=== PATIENT | female | born 1980 | race African-American/Black ===

== ENCOUNTER 2022-03-11 09:32 | Emergency (ER) | payer MEDICAID ==
[~2022-03-11] VITALS: Ht 160 cm; Wt 45.0 kg
[2022-03-11 10:00] VITALS: BP 146/73
== END 2022-03-11 14:00 | disposition left against medical advice (07) ==
LOC: ER 09:32
DX: M54.9 Dorsalgia, unspecified (principal); Z53.21 Procedure and treatment not carried out due to patient leaving prior to being seen by health care provider
CPT/HCPCS: 82962

== ENCOUNTER 2023-02-02 09:10 | Inpatient (IN) | payer MEDICAID ==
[~2023-02-02] VITALS: Ht 162.6 cm; Wt 54.5 kg
[2023-02-02 09:45] LABS: Basophils # (auto) 0.1 10 ^3/uL (0-0.2); Eosinophils # (auto) 0 10 ^3/uL (0-0.8); Lymphocytes # (auto) 1.4 10 ^3/uL (0.4-5.4); Nucleated Red Blood Cells % 0.1 %
[2023-02-02 09:48] LABS: Basophils % (auto) 0.8 % (0.0-2.0); Lymphocytes % (auto) 12.8 % (10.0-50.0); Mean Corpuscular Hemoglobin 26.4 pg (28.0-32.0); Mean Corpuscular Hgb Conc. 29.8 g/dL (32.0-36.0); Mean Corpuscular Volume 88.7 fL (80.0-100.0); Monocytes # (auto) 0.4 10 ^3/uL (0-1.3); Monocytes % (auto) 3.2 % (0.0-12.0); Neutrophils # (auto) 9.3 10 ^3/uL (1.6-8.6); Neutrophils % (auto) 83.2 % (37.0-80.0); Red Blood Cells 4.17 10^6/uL (4.0-5.20); Red Cell Distribution Width 18.8 % (11.8-14.3); White Blood Cell 11.2 10^3/uL (4.4-10.8)
[2023-02-02] MEDS ORDERED: INSULIN DRIP 100 UNIT/100ML 100 ML IV SCH (10:00)
[2023-02-02] MEDS ORDERED: INSULIN LANTUS (GLARGINE) 1 /0.01ml (100units/ml) SC ONE (10:00)
[2023-02-02] MEDS ORDERED: DEXTROSE (50%) 50ML SYRG IV PRN (10:00)
[2023-02-02] MEDS ORDERED: SODIUM CHLORIDE 0.9% 1,000 ML IV ONE ×3 (10:00→13:45)
[2023-02-02 10:07] LABS: Alanine Aminotransferase 42 U/L (7-40); Albumin 4.4 g/dL (3.2-4.8); Alkaline Phosphatase 107 U/L (46-116); Anion Gap 23 (5-15); Aspartate Aminotransferase 31 U/L (13-40); BUN/Creatinine Ratio 18.6 (10.0-20.0); Bilirubin, Total 0.8 mg/dL (0.2-1.0); Blood Urea Nitrogen 19 mg/dL (9-23); Calcium 9.9 mg/dL (8.5-10.1); Carbon Dioxide 15 mmol/L (20-30); Chloride 95 mmol/L (98-107); Potassium 4.8 mmol/L (3.5-5.1); Sodium 133 mmol/L (136-145)
[2023-02-02 10:08] LABS: Total Protein 7.2 g/dL (5.7-8.2)
[2023-02-02 10:29] LABS: Glucose 687 mg/dL (74-106)
[2023-02-02 10:33] LABS: Base Excess -15.7 mmol/L (-2.0-2.0)
[2023-02-02] MEDS: ACCU-CHEK COMFORT CURVE STRIP VI SCH ×9 (10:50→22:30)
[2023-02-02] MEDS ORDERED: PIPERACILLIN-TAZOB 3.375GM 100 ML IV ONE (11:00)
[2023-02-02 12:08] LABS: Urine Bacteria NONE SEEN /hpf (None Seen); Urine Blood Negative /uL (Negative); Urine Clarity Clear (Clear); Urine Color Straw (Yellow); Urine Protein, UAD Negative (Negative); Urine Specific Gravity 1.021 (1.001-1.035); Urine Urobilinogen Normal (Negative); Urine WBC 1 /hpf (0 - 5)
[2023-02-02] MEDS ORDERED: MORPHINE SULFATE INJ 2 MG/ml SYRG IV PRN (13:45)
[2023-02-02] MEDS ORDERED: NITROGLYCERIN 0.4 MG SL TAB SL PRN (13:45)
[2023-02-02] MEDS: SODIUM CHLORIDE 0.9% 1,000 ML IV SCH ×2 (13:45→22:05)
[2023-02-02] MEDS ORDERED: ACETAMINOPHEN 325 MG TAB PO PRN (13:45)
[2023-02-02] MEDS: HYDROcodone-ACET 5/325MG TAB PO PRN ×2 (14:25→21:18)
[2023-02-02] MEDS: ONDANSETRON HCL 4 MG/2 ML VIAL IV PRN ×2 (16:17→21:17)
[2023-02-02] MEDS: PIPERACILLIN-TAZOB 3.375GM 100 ML IV SCH (17:52)
[2023-02-02 18:29] LABS: Anion Gap 12 (5-15); Carbon Dioxide 18 mmol/L (20-30); Chloride 106 mmol/L (98-107); Sodium 136 mmol/L (136-145)
[2023-02-02 18:30] LABS: Calcium 8.3 mg/dL (8.7-10.4)
[2023-02-02 18:35] LABS: Blood Urea Nitrogen 12 mg/dL (9-23); Glucose 215 mg/dL (74-106)
[2023-02-02 19:48] VITALS: PULSE 95; RESP 20; O2SAT 98
[2023-02-03] MEDS: ACCU-CHEK COMFORT CURVE STRIP VI SCH ×5 (00:09→12:18)
[2023-02-03 00:53] LABS: Chloride 108 mmol/L (98-107); Potassium 3.4 mmol/L (3.5-5.1); Sodium 138 mmol/L (136-145)
[2023-02-03 00:54] LABS: Anion Gap 9 (5-15); Calcium 8.4 mg/dL (8.7-10.4); Carbon Dioxide 21 mmol/L (20-30)
[2023-02-03 00:59] LABS: BUN/Creatinine Ratio 11.4 (10.0-20.0); Blood Urea Nitrogen 8 mg/dL (9-23); Glucose 73 mg/dL (74-106)
[2023-02-03] MEDS: PIPERACILLIN-TAZOB 3.375GM 100 ML IV SCH ×2 (02:20→09:15)
[2023-02-03] MEDS ORDERED: DEXTROSE (50%) 50ML SYRG IV PRN (06:00)
[2023-02-03 06:08] LABS: Basophils # (auto) 0.1 10 ^3/uL (0-0.2); Eosinophils # (auto) 0.1 10 ^3/uL (0-0.8); Neutrophils # (auto) 4.4 10 ^3/uL (1.6-8.6); White Blood Cell 7.8 10^3/uL (4.4-10.8)
[2023-02-03 06:14] LABS: Eosinophils % (auto) 1.1 % (0.0-7.0); Hematocrit 30.4 % (36.0-46.0); Hemoglobin 9.4 g/dL (12.2-16.2); Lymphocytes # (auto) 2.8 10 ^3/uL (0.4-5.4); Lymphocytes % (auto) 35.8 % (10.0-50.0); Mean Corpuscular Hemoglobin 26.4 pg (28.0-32.0); Mean Corpuscular Hgb Conc. 30.8 g/dL (32.0-36.0); Mean Corpuscular Volume 85.8 fL (80.0-100.0); Monocytes # (auto) 0.5 10 ^3/uL (0-1.3); Monocytes % (auto) 6.3 % (0.0-12.0); Neutrophils % (auto) 55.8 % (37.0-80.0); Red Blood Cells 3.54 10^6/uL (4.0-5.20)
[2023-02-03 06:27] LABS: Albumin 3.6 g/dL (3.2-4.8); Alkaline Phosphatase 72 U/L (46-116); Anion Gap 6 (5-15); Aspartate Aminotransferase 23 U/L (13-40); BUN/Creatinine Ratio 11.9 (10.0-20.0); Bilirubin, Total 0.5 mg/dL (0.2-1.0); Blood Urea Nitrogen 8 mg/dL (9-23); Calcium 8.1 mg/dL (8.7-10.4); Carbon Dioxide 21 mmol/L (20-30); Chloride 109 mmol/L (98-107); Glucose 97 mg/dL (74-106); Potassium 4.3 mmol/L (3.5-5.1); Sodium 136 mmol/L (136-145)
[2023-02-03 06:34] LABS: Alanine Aminotransferase 24 U/L (7-40)
[2023-02-03] MEDS: SODIUM CHLORIDE 0.9% 1,000 ML IV SCH ×2 (06:47→14:45)
[2023-02-03 08:00] VITALS: PULSE 93; RESP 16; O2SAT 98
[2023-02-03 08:00] LABS: Base Excess -4.2 mmol/L (-2.0-2.0)
[2023-02-03] MEDS: InsuLIN REG 1unit/0.01ml Soln (100units/ml) SC SCH ×2 (08:40→12:21)
[2023-02-03] MEDS ORDERED: INSULIN LANTUS (GLARGINE) 1 /0.01ml (100units/ml) SC SCH (10:00)
[2023-02-03] MEDS ORDERED: ENOXAPARIN SOD 40 MG/0.4 ML SYRINGE SC SCH (10:00)
[2023-02-03 11:44] LABS: Magnesium 1.7 mg/dL (1.6-2.6)
[2023-02-03 11:46] LABS: Phosphorus 2.4 mg/dL (2.4-5.1)
[2023-02-03] MEDS: ONDANSETRON HCL 4 MG/2 ML VIAL IV PRN (12:25)
[2023-02-03 12:54] LABS: Chloride 106 mmol/L (98-107); Potassium 3.7 mmol/L (3.5-5.1); Sodium 137 mmol/L (136-145)
[2023-02-03 12:55] LABS: Anion Gap 8 (5-15); Calcium 8.3 mg/dL (8.5-10.1); Carbon Dioxide 23 mmol/L (20-30)
[2023-02-03 13:00] LABS: BUN/Creatinine Ratio 7.6 (10.0-20.0); Blood Urea Nitrogen 5 mg/dL (9-23); Glucose 192 mg/dL (74-106)
[2023-02-03] MEDS ORDERED: AZITTAB PO (14:07)
[2023-02-03 14:50] VITALS: BP 105/62; PULSE 102; RESP 16; TEMP 97.8; O2SAT 99
== END 2023-02-03 14:50 | disposition home or self-care (01) | DRG 420 ==
LOC: ER 09:10 → EDBD 09:10 → TELE 13:46
PROVIDERS: ADMIT Internal Medicine Geriatric Medicine; ATTEND Student in an Organized Health Care Education/Training Program
DX: E10.10 Type 1 diabetes mellitus with ketoacidosis without coma (principal); D72.829 Elevated white blood cell count, unspecified
CPT/HCPCS: 36415; 36600; 71045; 74176; 80048; 80053; 81001; 82010; 82805; 82962; 83036; 83605; 83735; 84100; 85025; 99291; G0378; J1815; J2405; J2543

== ENCOUNTER → 2023-06-26 | Outpatient (CLI) | payer MEDICAID ==
[~2023-06-26] MED LIST: AZITTAB PO
== END | disposition home or self-care (01) ==
LOC: XYW 08:30
PROVIDERS: ATTEND Internal Medicine Gastroenterology
DX: R11.2 Nausea with vomiting, unspecified (principal)
CPT/HCPCS: 78264; A9541

== ENCOUNTER 2024-12-13 11:07 | Inpatient (IN) | payer MEDICAID ==
[~2024-12-13] VITALS: Ht 160 cm; Wt 69.2 kg
--- NOTE | 2024-12-13 11:26 | ED.PDOC ---
GI ASSESSMENT HPI Comments 44 year old male presents to the ED with a chief complaint of abdominal pain onset 4 days. Patient states he has been experiencing lower abdominal pain radiates to low back as well as nausea, vomiting, diarrhea and chills. Patient is also experiencing urinary urgency but cannot urinate. She was seen at [facility] last night, was told she had an all enlarged spleen and liver, was discharged. Patient states pain has not improved, has worsened, contacted her insurance and was advised to come to [facility]. She follows up with the [facility] and was told she has a fatty liver. PMHx DM. Denies fever, hematuria, hematemesis, dizziness, headache, chest pain, shortness of breath. No other symptoms or modifying factors present at this time. Chief Complaint: Abdominal Pain Time Seen by MD: 11:20 Reviewed Notes: Medications, Allergies Allergies: Coded Allergies: NO KNOWN ALLERGIES (Unverified , 03/11/22) Home Meds Active Scripts Azithromycin (Zithromax Z-Reggie) 250 Mg Tab, 250 MG PO DAILY, #6 TAB Prov:MARGARITA FRAUSTO MD 02/03/23 Information Source: Patient Mode of Arrival: Ambulatory Timing: Days Duration: Since onset Prehospital treatment: None Quality: Sharp Severity: Moderate Recent: None Recent Hx of: None Pain Location: RLQ, LUQ Modifying Factors: Nothing Associated sign and symptoms: Nausea, Vomiting, Diarrhea, Abdominal Pain Past Medical History PAST MEDICAL HISTORY: DM Surgical History: , Tubal Ligation RETAIL ACCOUNT SPECIALIST History: Ectopic , Endometriosis Family History Family History: Unknown Social History Smoker: Non-Smoker Alcohol: Denies ETOH Use Drugs: Denies Drug Use Lives In: Home Constitutional: reports: chills; denies: diaphoresis, fatigue, fever, malaise, sweats, weakness, others EENTM: denies: blurred vision, double vision, ear bleeding, ear discharge, ear drainage, ear pain, ear ringing, eye pain, eye redness, hearing loss, mouth pain, mouth swelling, nasal discharge, nose bleeding, nose congestion, nose pain, photophobia, tearing, throat pain, throat swelling, voice changes, others Respiratory: denies: cough, hemoptysis, orthopnea, SOB at rest, shortness of breath, SOB with excertion, stridor, wheezing, others Cardiovascular: denies: chest pain, dizzy spells, diaphoresis, Dyspnea on exertion, edema, irregular heart beat, left arm pain, lightheadedness, palpitations, PND, syncope, others Gastrointestinal: reports: abdominal pain, diarrhea, nausea, vomiting; denies: abdomen distended, blood streaked bowels, constipated, dysphagia, difficulty swallowing, hematemesis, melena, poor appetite, poor fluid intake, rectal bleeding, rectal pain, others Genitourinary: denies: abnormal vagina bleeding, burning, dyspareunia, dysuria, flank pain, frequency, hematuria, incontinence, pain, , vagina discharge, urgency, others Neurological: denies: dizziness, fainting, headache, left sided numbness, left sided weakness, numbness, paresthesia, pre-existing deficit, right sided numbness, right sided weakness, seizure, speech problems, tingling, tremors, weakness, others Musculoskeletal: reports: back pain; denies: gout, joint pain, joint swelling, muscle pain, muscle stiffness, neck pain, others Integumetry: denies: bruises, change in color, change in hair/nails, dryness, laceration, lesions, lumps, rash, wounds, others Allergic/Immunocompromised: denies: Difficulty Healing, Frequent Infections, Hives, Itching, others Hematologic/Lymphatic: denies: anemia, blood clots, easy bleeding, easy bruising, swollen glands, others Endocrine: denies: excessive hunger, excessive sweating, excessive thirst, excessive urination, flushing, intolerance to cold, intolerance to heat, unexplained weight gain, unexplained weight loss, others Psychiatric: denies: anxiety, bipolar disorder, depression, hopeless, panic disorder, schizophrenia, sleepless, suicidal, others All Other Systems: Reviewed and Negative Physical Exam General Appearance: Moderate Distress, Normal HEENT: Normal ENT Inspection, Pharynx Normal, TMs Normal Neck: Full Range of Motion, Non-Tender, Normal, Normal Inspection Respiratory: Chest Non-Tender, Lungs Clear, No Accessory Muscle Use, No Respiratory Distress, Normal Breath Sounds Cardiovascular: No Edema, No JVD, No Murmur, No Gallop, Normal Peripheral Pulses, Regular Rate/Rhythm Breast Exam: Deferred Gastrointestinal: No Organomegaly, Non Tender, No Pulsatile Mass, Normal Bowel Sounds, Soft Genitalia: Deferred Pelvic: Deferred Rectal: Deferred Extremities: No calf tenderness, Normal capillary refill, Normal inspection, Normal range of motion, Non-tender, No pedal edema Musculoskeletal : Apperance: Normal Neurologic: Alert, extract puller II-XII nml as Tested, No Motor Deficits, Normal Affect, Normal Mood, No Sensory Deficits Cerebellar Function: Normal Reflexes: Normal Skin: Dry, Normal Color, Warm Peripheral Pulses: 3+ Radial (R), 3+ Radial (L) Lymphatic: No Adenopathy Was a procedure done? Was a procedure done?: No GI differential Dx Differential Diagnosis: Constipation, Diverticular disease, Esophagitis, Gastritis/PUD, Gastroenteritis X-Ray, Labs, Meds, VS Vital Signs Date Time Temp Pulse Resp B/P (MAP) Pulse Ox O2 Delivery O2 Flow Rate FiO2 12/13/24 11:09 98.7 114 18 132/66 99 98.7 Patient alert. Very sensitive about drugs. History of liver disease pain Vitals stable. Ambulating. No leg swelling. Saturation pristine on room air. She was upset that we asked her questions about marijuana other drugs. Contact [facility] for which she was seen yesterday. Possibly need GI consultation. Continue monitoring. Time of 1ST Reevaluation: 11:50 Reevaluation 1ST: Unchanged Patient Education/Counseling: Diagnosis, Treatment, Prognosis Family Education/Counseling: No Family Present SEPSIS Sepsis Screen Date sepsis recognized/suspect: Dec 13, 2024 Time Sepsis recognized/suspect: 1109 Recent Procedure: No On Antibiotic Therapy: No Respiratory Rate >20: No Heart Rate >90: Yes Temp<36 C (96.8 F) or >38.3 C: No SBP <90 or MAP <65 mmHG: No New Acute Mental Status Change: No Is the patient on CPAP, BIPAP,: No Physician Orders Complete Blood Count (12/13/24 11:16) Urinalysis (12/13/24 11:16) Basic Metabolic Panel (12/13/24 11:16) Vital Signs Date Time Temp Pulse Resp B/P (MAP) Pulse Ox O2 Delivery O2 Flow Rate FiO2 12/13/24 11:09 98.7 114 18 132/66 99 98.7 Departure 1 Departure Time of Disposition: 11:41 Impression: Primary Impression: Acute abdominal pain Disposition: ADMITTED INPATIENT Admit to: Med Surg Condition: Guarded Critical Care Note Critical Care Time?: No Stability Stability form required: No Heart Score Heart Score: Heart Score Response (Comments) Value History N/A 0 EKG N/A 0 Age N/A 0 Risk Factors N/A 0 Troponin N/A 0 Total 0 I personally scribed for ALFONSO REIS MD ([email or web address]) on 12/13/24 at 11:26. Electronically submitted by Kiana Bradford ([email or web address]). ALFONSO REIS MD Dec 13, 2024 11:26
--- NOTE | 2024-12-13 13:00 | DVH ---
Exam: CT CT AB PEL WO CON-NO ORAL OR IV History: colitis Comparison Study: CT CT AB PEL WO CON-NO ORAL OR IV on DOS: 02/02/23 Technique: Multidetector spiral CT of the abdomen was performed from lung bases to pubic symphysis. I maging was performed without IV contrast. Axial, coronal and sagittal multiplanar reformats were obta ined from the axial data set by the technologist. Radiation Dose : 1. Abdomen/Pelvis: CTDIvol 5.56 mGy, DLP 3.92 mGy*cm. Findings: Evaluation of solid organs is limited due to lack of intravenous contrast use. Lung Bases: Left basilar subsegmental atelectasis. Liver: Hepatomegaly. Gallbladder and Biliary Tree: Unremarkable Spleen: Unremarkable Pancreas: The pancreas is grossly normal in appearance. Adrenal Glands: Unremarkable Kidneys: Kidneys are grossly normal without calculi or hydronephrosis. Bladder: Grossly unremarkable for degree of distention. Bowel: The stomach is grossly normal in appearance. Moderate volume colonic stool. Normal appendix is visualized in the right lower quadrant without findings of appendicitis. Ascites: Absent Lymphadenopathy: No mesenteric, retroperitoneal or periportal lymphadenopathy. Abdominal Wall and Mesentery: Unremarkable. Vasculature: The visualized abdominal aorta is normal in size and caliber. Evaluation of abdominal a nd pelvic vessels is limited due to lack of intravenous contrast. Pelvic Organs: Unremarkable Musculoskeletal: No aggressive focal bony lesions, acute fractures or dislocation. IMPRESSION: Limited evaluation of the solid abdominal viscera and vasculature due to the lack of intravenous cont rast. No acute abnormalities in the abdomen or pelvis. Moderate volume colonic stool.
[2024-12-13] MEDS: SODIUM CHLORIDE 0.9% 1,000 ML IV ONE ×2 (13:13→16:50)
[2024-12-13] MEDS: MORPHINE SULFATE 4 MG/ML SYR/VIAL IV ONE (13:13)
[2024-12-13] MEDS: ONDANSETRON HCL 4 MG/2 ML VIAL IV ONE (13:13)
[2024-12-13 15:16] LABS: Urine Budding Yeast OCCASIONAL /hpf (None Seen); Urine Protein, UAD 1+ (Negative)
[2024-12-13] MEDS: SODIUM CHLORIDE 0.9% 1,000 ML IV SCH (16:30)
[2024-12-13 17:02] LABS: Hematocrit 36.2 % (36.0-46.0); Hemoglobin 11.8 g/dL (12.2-16.2); Mean Corpuscular Hemoglobin 27.9 pg (28.0-32.0); Mean Corpuscular Volume 85.7 fL (80.0-100.0); Nucleated Red Blood Cells % 0.0 %
[2024-12-13 17:17] LABS: INR 0.99 (0.9-1.15); Partial Thromboplastin Time 32.3 SEC (24.5-34.5); Prothrombin Time 10.5 sec (9.3-11.8)
[2024-12-13 17:19] LABS: Albumin 3.7 g/dL (3.2-4.8); Alkaline Phosphatase 106 U/L (46-116); Anion Gap 7 (5-15); BUN/Creatinine Ratio 11.1 (10.0-20.0); Blood Urea Nitrogen 11 mg/dL (9-23); Carbon Dioxide 21 mmol/L (20-31); Lipase 16 U/L (12-53); Magnesium 1.8 mg/dL (1.6-2.6); Sodium 140 mmol/L (136-145); Total Protein 6.3 g/dL (5.7-8.2)
[2024-12-13 17:20] LABS: Alanine Aminotransferase 69 U/L (7-40); Bilirubin, Total < 0.2 mg/dL (0.2-1.0); Calcium 8.1 mg/dL (8.7-10.4); Chloride 112 mmol/L (98-107); Glucose 202 mg/dL (74-106); Potassium 3.4 mmol/L (3.5-5.1)
--- NOTE | 2024-12-13 17:30 | DVH ---
EXAM: XY CHEST XRAY 1 VIEW CLINICAL HISTORY: Sepsis TECHNIQUE: Single AP view of the chest WID: COMPARISON: XY CHEST PORTABLE on DOS: 02/02/23 FINDINGS: Lines and tubes: None Chest: The heart size and pulmonary vasculature is within normal limits. No pleural effusion, pneumothorax, or consolidation. Linear scarring or atelectasis in the left lung base. The osseous structures are grossly intact. IMPRESSION: 1. No acute cardiopulmonary abnormality.
[2024-12-13 17:55] LABS: Barbiturate Scree,Urine Neg (NEGATIVE); Benzodiazephine Screen, Urine Neg (NEGATIVE)
[2024-12-13 17:56] LABS: Cannabinoid Screen, Urine Pos (NEGATIVE); Opiate Scree,Urine Neg (NEGATIVE)
[2024-12-13 18:00] LABS: Triglycerides 85 mg/dL (< 150)
[2024-12-13 18:01] LABS: Cholesterol 137 mg/dL (< 200)
[2024-12-13 18:16] LABS: HDL Cholesterol 69 mg/dL (40-59)
[2024-12-13 18:16] LABS: Amphetamine Screen, Urine Neg (NEGATIVE); Cocaine Screen, Urine Neg (NEGATIVE); Phencyclidine Screen, Urine Neg (NEGATIVE)
[2024-12-13] MEDS ORDERED: DOXYCYCLINE 100MG/100ML 100 ML IV ONE (19:30)
--- NOTE | 2024-12-13 20:18 | DVH ---
ULTRASOUND ABDOMEN: REASON FOR EXAM: Abdominal pain. Right upper quadrant pain. TECHNIQUE: Real-time sector scans in the transverse and longitudinal planes were obtained through th e abdomen. FINDINGS: The liver is of normal size and contour. The liver echotexture is coarse and echogenic. Th ere is no intrahepatic biliary ductal dilatation. The common bile duct measures 3 mm. The gallbladde r is not distended. No gallstones or sludge are identified. There is no gallbladder wall thickening nor pericholecystic fluid. There is no sonographic Botello's sign. The spleen is normal in size. The visualized portion of the pancreas is unremarkable. The right kidney measures 10.3 cm. The left kidney measures 12.0 cm. There is no hydronephrosis or nephrolithiasis. There is no evidence of focal renal mass or cyst. The visualized portions of the abdominal aorta demonstrate no evidence of aneurysmal dilatation. The visualized inferior vena cava is unremarkable. There is no free intraperitoneal fluid. IMPRESSION: The liver is diffusely echogenic which may be secondary to steatosis or another diffuse hepatic proce ss. Correlate clinically and with liver function tests. Nondistended gallbladder. No gallstone identified. No sonographic evidence of acute cholecystitis.
[2024-12-13] MEDS: DOXYCYCLINE 100MG/100ML 100 ML IV SCH (20:42)
[2024-12-13 21:00] VITALS: BP 142/83; PULSE 119; RESP 18; TEMP 99.1; O2SAT 97
--- NOTE | 2024-12-13 21:14 | DVHHPRES ---
History of Present Illness Resident Creating Document: BALTA SKAGGS RESIDENT History of Present Illness 44-year-old female with past medical history of type 1 diabetes mellitus, diabetic gastroparesis, diabetic neuropathy, previous history of ectopic presented to the ER with complaints of 5 days of distention of abdomen, pain around the periumbilical area which radiates to lower back. The pain onset sudden and rate during 8/10 in intensity. Movement, food sensation would make the pain worse. She took ibuprofen with no improvement of pain. She reports the abdominal pain is associated with vomiting, bilious, not mixed with blood. She reports having urinary frequency and urgency. She denies any recent travel history or sick contacts. According to the patient, yesterday she visited to [facility] with similar complaints, CT scan revealed hepatosplenomegaly. Pain was managed and she was prescribed Protonix. This morning when the pain was intractable, she visited to [facility]. She denies any chest pain, shortness of breath, fever or any other complaints. Past medical history: Type 1 diabetes mellitus, diabetic neuropathy and gastroparesis. Past surgical history: Surgery due to ectopic with tubal ligation. Home medications: Pregabalin, insulin infusion pump. Smoking: Alcohol: Occasional Drugs: Active marijuana use Menstrual history: LMP 11/06. Irregular. special education paraprofessional: PCP: Dr. Grijalva, nascar racer: Dr. Vogel Code status: Full code Review of Systems Gastrointestinal: Vomiting, Abdominal Pain, Other Genitourinary: Dysuria Other Abdominal distention Allergies: Coded Allergies: NO KNOWN ALLERGIES (Unverified , 03/11/22) Medications Current Medications Medications Dose Ordered Sig/José Miguel Route Start Time Stop Time Status Last Admin Dose Admin Ceftriaxone Sodium 50 ml @ 100 mls/hr DAILY@09 IV 12/14/24 09:00 Metronidazole 100 ml @ 100 mls/hr Q8HR IV 12/13/24 22:00 Sodium Chloride 1,000 ml @ 75 mls/hr [id number] IV 12/13/24 16:30 Doxycycline Hyclate 100 ml @ 50 mls/hr Q12H IV 12/13/24 19:30 12/13/24 20:42 50 MLS/HR Exam Vital Signs Vital Signs Date Time Temp Pulse Resp B/P (MAP) Pulse Ox O2 Delivery O2 Flow Rate FiO2 12/13/24 20:01 Room Air* 0 21 12/13/24 15:44 108 19 134/75 12/13/24 15:21 98 12/13/24 13:03 98.4 98.4 Exam Pt is lying on bed General Appearance: Alert, Oriented X3, Cooperative, Mild distress HEENT: Atraumatic, Mucous membranes moist/pink Respiratory: Clear to auscultation, Normal air movement, No added sounds Cardiovascular: Regular rate, Normal S1, Normal S2, No murmurs Abdominal/ : Active bowel sounds, Soft, abdominal distention, tenderness around periumbilical area and CVA tenderness present Extremities: No edema, Normal pulses, No tenderness/swelling Skin: No Significant rash, except past surgical scars Neuro: Normal speech, sensorimotor deficits none Psych/Mental Status: Mental status NL, Mood NL Nurse was there as hazardous waste remover during examination Labs/Xrays Labs Test 12/13/24 16:38 12/13/24 16:30 12/13/24 14:29 Range/Units White Blood Count 9.0 4.4-10.8 10^3/uL Red Blood Count 4.22 4.0-5.20 10^6/uL Hemoglobin 11.8 L 12.2-16.2 g/dL Hematocrit 36.2 36.0-46.0 % Mean Corpuscular Volume 85.7 80.0-100.0 fL Mean Corpuscular Hemoglobin 27.9 L 28.0-32.0 pg Mean Corpuscular Hemoglobin Concent 32.5 32.0-36.0 g/dL Red Cell Distribution Width 15.1 H 11.8-14.3 % Platelet Count 147 140-450 10^3/uL Mean Platelet Volume 10.6 6.9-10.8 fL Neutrophils (%) (Auto) 75.8 37.0-80.0 % Lymphocytes (%) (Auto) 12.1 10.0-50.0 % Monocytes (%) (Auto) 10.8 0.0-12.0 % Eosinophils (%) (Auto) 0.5 0.0-7.0 % Basophils (%) (Auto) 0.8 0.0-2.0 % Neutrophils # (Auto) 6.8 1.6-8.6 10 ^3/uL Lymphocytes # (Auto) 1.1 0.4-5.4 10 ^3/uL Monocytes # (Auto) 1.0 0-1.3 10 ^3/uL Eosinophils # (Auto) 0 0-0.8 10 ^3/uL Basophils # (Auto) 0.1 0-0.2 10 ^3/uL Nucleated Red Blood Cells 0.0 % Prothrombin Time 10.5 9.3-11.8 sec Prothrombin Time INR 0.99 0.9-1.15 Activated Partial Thromboplast Time 32.3 24.5-34.5 SEC Sodium Level 140 136-145 mmol/L Potassium Level 3.4 L 3.5-5.1 mmol/L Chloride Level 112 H 98-107 mmol/L Carbon Dioxide Level 21 20-31 mmol/L Anion Gap 7 5-15 Blood Urea Nitrogen 11 9-23 mg/dL Creatinine 0.99 0.550-1.02 mg/dL Glomerular Filtration Rate Calc 73 >90 mL/min BUN/Creatinine Ratio 11.1 10.0-20.0 Serum Glucose 202 H 74-106 mg/dL Hemoglobin A1c 9.8 H <5.7 % A1C Calcium Level 8.1 L 8.7-10.4 mg/dL Phosphorus Level 2.5 2.4-5.1 mg/dL Magnesium Level 1.8 1.6-2.6 mg/dL Total Bilirubin < 0.2 L 0.2-1.0 mg/dL Aspartate Amino Transferase (AST) 39 13-40 U/L Alanine Aminotransferase (ALT) 69 H 7-40 U/L Alkaline Phosphatase 106 46-116 U/L Total Protein 6.3 5.7-8.2 g/dL Albumin 3.7 3.2-4.8 g/dL Triglycerides Level 85 < 150 mg/dL Cholesterol Level 137 < 200 mg/dL LDL Cholesterol 49 < 100 mg/dL HDL Cholesterol 69 H 40-59 mg/dL Lipase 16 12-53 U/L Vitamin B12 Level 1292 H 211-911 pg/mL Vitamin D 25-Hydroxy 6.0 L 30.0-100 ng/mL Thyroid Stimulating Hormone (TSH) 0.39 L 0.55-4.78 uIU/mL Plasma/Serum Blood Alcohol 3.4 <10 mg/dL Lactic Acid Level 0.8 0.4-2.0 mmol/L Ammonia < 10 L 11-32 umol/L Beta HCG, Quantitative 1.6 1.5-4.2 mIU/mL Treponema pallidum Antibody Non-reactive Negative HIV (1&2) Antibody Negative Negative Urine Color Light-orange Yellow Urine Clarity Ex.turbid Clear Urine pH 6.0 5.0-9.0 Urine Specific [place] 1.023 1.001-1.035 Urine Protein 1+ H Negative Urine Ketones Negative Negative Urine Blood 3+ H Negative /uL Urine Nitrite Negative Negative Urine Bilirubin Negative Negative Urine Urobilinogen Normal Negative mg/dL Urine Leukocyte Esterase 3+ Negative /uL Urine RBC 30 0 - 4 /hpf Urine Microscopic WBC 50 H 0-5 /HPF Urine Squamous Epithelial Cells Many <5 /hpf Urine Bacteria None seen None Seen /hpf Urine Mucus Few None Seen Urine Yeast (Budding) Occasional None Seen /hpf Urine Glucose 1+ H Normal mg/dL Urine Opiates Screen Neg NEGATIVE Urine Fentanyl Screen Neg NEGATIVE Urine Barbiturates Screen Neg NEGATIVE Urine Phencyclidine Screen Neg NEGATIVE Urine Amphetamines Screen Neg NEGATIVE Urine Benzodiazepines Screen Neg NEGATIVE Urine Cocaine Screen Neg NEGATIVE Urine Cannabinoids Screen Pos NEGATIVE SEPSIS Sepsis Screen Date sepsis recognized/suspect: Dec 13, 2024 Time Sepsis recognized/suspect: 1108 Recent Procedure: No On Antibiotic Therapy: No Respiratory Rate >20: No Heart Rate >90: Yes Temp<36 C (96.8 F) or >38.3 C: No SBP <90 or MAP <65 mmHG: No New Acute Mental Status Change: No Is the patient on CPAP, BIPAP,: No Physician Orders Abg W/ Co-Ox (12/13/24 16:13) Blood Culture (12/13/24 16:16) Urine Bacterial Culture (12/13/24 16:16) Respiratory Culture W/ Gs (12/13/24 16:16) Acute Hepatitis Panel (12/13/24 16:16) Chlamydia/Gc Amplification (12/13/24 16:16) Ceftriaxone 1gm/50ml (Rocephin) (12/14/24 09:00) Metronidazole 500mg/100ml (Flagyl 500mg/ (12/13/24 22:00) Electrocardigram (12/13/24 16:19) Chest Xray 1 View (12/13/24 16:19) Sodium Chloride 0.9% (12/13/24 16:30) Admit (12/13/24 18:15) Doxycycline 100mg/100ml (Vibramycin) (12/13/24 19:30) Clear Liq Diet (12/14/24 Breakfast) Abdomen Complete Sonogram (12/13/24 19:23) Vital Signs Date Time Temp Pulse Resp B/P (MAP) Pulse Ox O2 Delivery O2 Flow Rate FiO2 12/13/24 20:01 Room Air* 0 21 12/13/24 15:44 108 19 134/75 12/13/24 15:21 108 19 134/75 (94) 98 Laboratory Tests Test 12/13/24 16:30 12/13/24 16:38 Lactic Acid Level 0.8 mmol/L (0.4-2.0) White Blood Count 9.0 10^3/uL (4.4-10.8) Medications Medications Dose Ordered Sig/José Miguel Route Start Time Stop Time Status Last Admin Dose Admin Ceftriaxone Sodium 50 ml @ 100 mls/hr ONCE ONCE IV 12/13/24 16:30 12/13/24 16:59 DC 12/13/24 16:52 100 MLS/HR Doxycycline Hyclate 100 ml @ 50 mls/hr Q12H IV 12/13/24 19:30 12/13/24 20:42 50 MLS/HR Metronidazole 100 ml @ 100 mls/hr ONCE ONCE IV 12/13/24 16:30 12/13/24 17:29 DC 12/13/24 17:22 100 MLS/HR Morphine Sulfate 4 mg ONCE ONCE IV 12/13/24 12:15 12/13/24 12:16 DC 12/13/24 13:13 4 MG Ondansetron HCl 4 mg ONCE ONCE IV 12/13/24 12:15 12/13/24 12:16 DC 12/13/24 13:13 4 MG Sodium Chloride 1,000 ml @ 1,000 mls/hr Q1H ONCE IV 12/13/24 12:15 12/13/24 13:14 DC 12/13/24 13:13 1,000 MLS/HR Sodium Chloride 1,000 ml @ 1,000 mls/hr Q1H ONCE IV 12/13/24 16:30 12/13/24 17:29 DC 12/13/24 16:50 1,000 MLS/HR Assessment/Plan Assessment/Plan Intractable abdominal pain due to Pyelonephritis/hepatitis/pelvic inflammatory disease Transaminitis IV fluid Morphine Ondansetron IV Ceftriaxone, metronidazole, doxycycline Abdominal ultrasound: The liver is diffusely echogenic which may be secondary to steatosis or another diffuse hepatic process. Correlate clinically and with liver function tests.Nondistended gallbladder. No gallstone identified. No sonographic evidence of acute cholecystitis. LFTs: ALT 69 ALP [address]:Limited evaluation of the solid abdominal viscera and vasculature due to the lack of intravenous contrast. No acute abnormalities in the abdomen or pelvis.Moderate volume colonic stool. Uncontrolled type 1 diabetes mellitus with complications (gastroparesis, diabetic neuropathy) Ruled out DKA Glucose 202, HbA1c 9.3 Mild insulin sliding scale Hypokalemia Replenished Microcytic hypochromic anemia Monitor labs Iron panel Blood transfusion if hemoglobin below 7 Vitamin-D deficiency Vitamin-D 90535 Q7 Marijuana use UDS positive for cannabinoids Counseling regarding cessation for more than 14 minutes GI prophylaxis: Pantoprazole DVT prophylaxis: Not indicated Diet: Clear liquid Goals of care discussed with the patient for more than 27 minutes: Full code status Case discussed with Dr. Cano, patient and RN Plan discussed with: Patient, Other (RN) My Orders Orders - BALTA SKAGGS RESIDENT Procedure Category Date Status Time Admit ADMIT 12/13/24 Verified 18:15 Doxycycline PHA 12/13/24 In Process 100mg/100ml 19:30 Clear Liq Diet DIET 12/14/24 Transmitted Breakfast Abdomen Complete US 12/13/24 Resulted Sonogram 19:23 Date of Service: Dec 14, 2024 Billing Provider: BUTCH CANO MD Common Visit Codes: 98369-[id number] INP/OBS CARE (HIGH) Secondary Visit Codes: [id number] CARE PLAN 30 MINUTES BALTA SKAGGS RESIDENT Dec 13, 2024 21:14 HEATHER HANCOCK RESIDENT Dec 14, 2024 09:14 BUTCH CANO MD Dec 16, 2024 22:00
[2024-12-13] MEDS: ACCU-CHEK COMFORT CURVE STRIP VI SCH (22:26)
[2024-12-13] MEDS: InsuLIN REG 1unit/0.01ml Soln (100units/ml) SC SCH (22:31)
[2024-12-13 22:40] VITALS: PULSE 113; RESP 18; O2SAT 97
[2024-12-13 22:45] VITALS: BP 161/86; PULSE 120; RESP 19; TEMP 98.8; O2SAT 96
[2024-12-14] MEDS: POTASSIUM CHL 20 Meq TABLET PO ONE (00:23)
[2024-12-14 01:00] VITALS: BP 141/84; PULSE 113; RESP 18; TEMP 98.5; O2SAT 97
[2024-12-14] MEDS: HYDROcodone-ACET 5/325MG TAB PO ONE (03:25)
[2024-12-14 05:00] VITALS: BP 122/69; PULSE 111; RESP 20; TEMP 98.5; O2SAT 92
[2024-12-14] MEDS: ERGOCALCIFEROL 50,000 UNIT(1.25MG) CAP PO SCH (07:38)
[2024-12-14 09:00] VITALS: BP 118/73; PULSE 47; RESP 16; TEMP 98.3; O2SAT 97
[2024-12-14 09:02] LABS: Hematocrit 32.7 % (36.0-46.0); Hemoglobin 10.8 g/dL (12.2-16.2); Mean Corpuscular Hemoglobin 28.2 pg (28.0-32.0); Mean Corpuscular Volume 85.8 fL (80.0-100.0); Nucleated Red Blood Cells % 0.0 %
[2024-12-14 09:15] LABS: Sodium 139 mmol/L (136-145)
[2024-12-14 09:16] LABS: Anion Gap 8 (5-15); Carbon Dioxide 19 mmol/L (20-31); Chloride 112 mmol/L (98-107); Potassium 3.1 mmol/L (3.5-5.1)
[2024-12-14 09:21] LABS: BUN/Creatinine Ratio 7.5 (10.0-20.0)
[2024-12-14 09:23] LABS: Blood Urea Nitrogen 6 mg/dL (9-23); Calcium 7.8 mg/dL (8.7-10.4); Glucose 210 mg/dL (74-106)
[2024-12-14] MEDS: MORPHINE SULFATE INJ 2 MG/ml SYRG IM ONE (10:07)
[2024-12-14] MEDS: PANTOPRAZOLE 40 MG/10 ML VIAL INJ IV SCH (10:08)
[2024-12-14] MEDS: POTASSIUM CHLORIDE 40 MEQ, LIDOCAINE 1% (LOCAL ANESTH.) 4 ML in SODIUM CHL 0.9% 250 ML IV ONE (11:38)
[2024-12-14 11:47] LABS: Iron 17.0 ug/dL (50-170); Total Iron Binding Capacity 283.0 ug/dL (250-425)
[2024-12-14 13:00] VITALS: BP 138/72; PULSE 94; RESP 18; TEMP 99; O2SAT 97
[2024-12-14] MEDS: MORPHINE SULFATE 4 MG/ML SYR/VIAL IV PRN (15:15)
[2024-12-14 17:00] VITALS: BP 149/89; PULSE 102; RESP 17; TEMP 98.6; O2SAT 100
--- NOTE | 2024-12-14 17:10 | DVHPNRES ---
Progress Note Date Seen: Dec 14, 2024 Resident Creating Document: BALTA SKAGGS RESIDENT Medical Necessity Reason Pt with a Central, PICC or Fol: No Subjective Review of Systems 44-year-old female with past medical history of type 1 diabetes mellitus, diabetic gastroparesis, diabetic neuropathy, previous history of ectopic presented to the ER with complaints of 5 days of distention of abdomen, pain around the periumbilical area which radiates to lower back. The pain onset sudden and rate during 8/10 in intensity. Movement, food intake make the pain worse. She took ibuprofen with no improvement of pain. She reports the abdominal pain is associated with vomiting, bilious, not mixed with blood. She reports having urinary frequency and urgency. She denies any recent travel history or sick contacts. According to the patient, yesterday she visited to [facility] with similar complaints, CT scan revealed hepatosplenomegaly. Pain was managed and she was prescribed Protonix. This morning when the pain was intractable, she visited to [facility]. She denies any chest pain, shortness of breath, fever or any other complaints. Past medical history: Type 1 diabetes mellitus, diabetic neuropathy and gastroparesis. Past surgical history: Surgery due to ectopic with tubal ligation. Home medications: Pregabalin, insulin infusion pump. Smoking: Alcohol: Occasional Drugs: Active marijuana use Menstrual history: LMP 11/06. Irregular. communications planner: PCP: Dr. Grijalva, typewriter aligner: Dr. Vogel Code status: Full code The patient was seen and examined at the bedside. Overnight events were reviewed. She reports having severe abdominal pain, rating 10/10 in intensity. She denies any chest pain, shortness of breath, fever or any other complaints today. Objective vital signs Vital Sign Date Time Temp Pulse Resp B/P (MAP) Pulse Ox O2 Delivery O2 Flow Rate FiO2 12/14/24 16:15 97 16 118/73 12/14/24 08:00 Room Air* 0 21 12/14/24 05:00 98.5 92 98.5 Total Intake and Output 12/13/24 12/13/24 12/14/24 15:00 23:00 07:00 Intake Total 1050 ml 120 ml Balance 1050 ml 120 ml medications Current Medications Medications Dose Ordered Sig/José Miguel Route Start Time Stop Time Status Last Admin Dose Admin Ceftriaxone Sodium 50 ml @ 100 mls/hr DAILY@09 IV 9/10/25 09:00 12/14/24 10:08 100 MLS/HR Metronidazole 100 ml @ 100 mls/hr Q8HR IV 12/13/24 22:00 12/14/24 14:39 100 MLS/HR Sodium Chloride 1,000 ml @ 75 mls/hr [id number] IV 12/13/24 16:30 12/14/24 06:09 75 MLS/HR Doxycycline Hyclate 100 ml @ 50 mls/hr Q12H IV 12/13/24 19:30 12/14/24 08:13 50 MLS/HR Diagnostic Test (Pha) 1 strip ACHS 12/13/24 22:00 12/14/24 16:33 1 STRIP Dextrose 50 ml UD PRN IV 12/13/24 22:00 Ondansetron HCl 4 mg Q8HP PRN PO 12/14/24 02:45 Pantoprazole Sodium 40 mg DAILY IV 12/14/24 10:00 12/14/24 10:08 40 MG Ergocalciferol 50,000 unit Q7D PO 12/14/24 06:45 12/14/24 07:38 50,000 UNIT Morphine Sulfate 3 mg Q6HP PRN IV 12/14/24 15:30 12/14/24 16:15 3 MG Morphine Sulfate 2 mg Q4HPRN PRN IV 12/14/24 15:30 Examination General Appearance: Alert, Oriented X3, Cooperative, Mild distress HEENT: Atraumatic, Mucous membranes moist/pink Respiratory: Clear to auscultation, Normal air movement, No added sounds Cardiovascular: Regular rate, Normal S1, Normal S2, No murmurs Abdominal/ : Active bowel sounds, Soft, abdominal distention, tenderness around periumbilical area and CVA tenderness present Extremities: No edema, Normal pulses, No tenderness/swelling Skin: No Significant rash, except past surgical scars Neuro: Normal speech, sensorimotor deficits none Psych/Mental Status: Mental status NL, Mood NL Nurse was there as personal care service provider during examination laboratory and microbiology Laboratory Tests 12/14/24 07:52 Test 12/14/24 07:52 Range/Units Serum Glucose 210 H 74-106 mg/dL Problem List/Assessment/Plan Problem List/Assessment/Plan Intractable abdominal pain due to Pyelonephritis/hepatitis/pelvic inflammatory disease Transaminitis IV fluid Morphine Ondansetron IV Ceftriaxone, metronidazole, doxycycline Abdominal ultrasound: The liver is diffusely echogenic which may be secondary to steatosis or another diffuse hepatic process. Correlate clinically and with liver function tests.Nondistended gallbladder. No gallstone identified. No sonographic evidence of acute cholecystitis. LFTs: ALT 69 ALP [address]:Limited evaluation of the solid abdominal viscera and vasculature due to the lack of intravenous contrast. No acute abnormalities in the abdomen or pelvis.Moderate volume colonic stool. Uncontrolled type 1 diabetes mellitus with complications (gastroparesis, diabetic neuropathy) Ruled out DKA Glucose 202, HbA1c 9.3 Mild insulin sliding scale for point of care glucose measurement only Insulin infusion pump maintained Hypokalemia Replenished Microcytic hypochromic anemia Monitor labs Iron panel Blood transfusion if hemoglobin below 7 Vitamin-D deficiency Vitamin-D 41968 Q7 Marijuana use UDS positive for cannabinoids Counseling regarding cessation for more than 14 minutes GI prophylaxis: Pantoprazole DVT prophylaxis: Not indicated Diet: Clear liquid Goals of care discussed with the patient for more than 27 minutes: Full code status Case discussed with Dr. Cano, patient and RN Plan discussed with: Patient, Other (RN) My Orders My Orders Orders - BALTA SKAGGS RESIDENT Procedure Category Date Status Time Admit ADMIT 12/13/24 Verified 18:15 Doxycycline PHA 12/13/24 In Process 100mg/100ml 19:30 Abdomen Complete US 12/13/24 Resulted Sonogram 19:23 Thyroxine (T4) LAB 12/13/24 In Process 21:26 Glucose Blood PHA 12/13/24 In Process (Accu-Chek Comfort 22:00 Dextrose 50% Syringe PHA 12/13/24 In Process 22:00 Pantoprazole PHA 12/14/24 In Process (Protonix) 10:00 Ergocalciferol PHA 12/14/24 In Process (Vitamin D 50,000 06:45 Communication Order ORDERS 12/14/24 Transmitted 11:11 Full Liq Diet DIET 12/14/24 Transmitted Lunch Advance Diet As ESDRAS 12/14/24 In Process Tolerated 13:30 Pelvic US 12/14/24 Taken Date of Service: Dec 14, 2024 Billing Provider: BUTCH CANO MD Common Visit Codes: [id number] INP/OBS CARE(HIGH) BALTA SKAGGS RESIDENT Dec 14, 2024 17:10 HEATHER HANCOCK RESIDENT Dec 17, 2024 14:54 BUTCH CANO MD Dec 18, 2024 10:18
--- NOTE | 2024-12-14 17:10 | DVH ---
EXAM: US PELVIC HISTORY: PID COMPARISON: US ABDOMEN COMPLETE SONOGRAM on DOS: 12/13/24 TECHNIQUE: Transabdominal and transvaginal imaging was utilized. Grayscale and color doppler evaluati on. Images were stored in the patient's permanent medical record. FINDINGS: UTERUS: 9.8 x 5 x 5.4 cm. Endometrial stripe: 0.5 cm. Heterogeneous appearance of the uterus. Endomet rium is within normal limits. RIGHT OVARY: 3.2 x 2.4 x 2.7 cm.Normal vascularity. Benign-appearing cysts in the right ovary. LEFT OVARY: 2.1 x 1.6 x 2.2 cm. Normal vascularity. No suspicious masses or cysts. OTHER: Small amount of free fluid. IMPRESSION: 1. No acute sonographic abnormality. 2. Heterogeneous appearance of the uterus without increased size of the junctional zone or underlying cysts. 3. No discrete measurable mass. Normal appearance of the endometrial stripe. 4. Benign-appearing cysts of the right ovary. Small amount of pelvic free fluid.
[2024-12-14 21:00] VITALS: BP 103/63; PULSE 86; RESP 20; TEMP 98.2; O2SAT 97
[2024-12-14] MEDS: MORPHINE SULFATE INJ 2 MG/ml SYRG IV PRN (23:42)
[2024-12-15] VITALS (7 sets, daily range): BP systolic 96–153; BP diastolic 65–89; PULSE 91–97; RESP 12–20; TEMP 98–98.4; O2SAT 98–100
[2024-12-15 07:03] LABS: Hematocrit 30.4 % (36.0-46.0); Hemoglobin 10.1 g/dL (12.2-16.2); Mean Corpuscular Hemoglobin 28.0 pg (28.0-32.0); Mean Corpuscular Volume 84.1 fL (80.0-100.0); Nucleated Red Blood Cells % 0.1 %
[2024-12-15 07:12] LABS: Alkaline Phosphatase 87 U/L (46-116); Anion Gap 7 (5-15); BUN/Creatinine Ratio 8.2 (10.0-20.0); Carbon Dioxide 21 mmol/L (20-31); Sodium 143 mmol/L (136-145); Total Protein 5.9 g/dL (5.7-8.2)
[2024-12-15 07:13] LABS: Albumin 3.2 g/dL (3.2-4.8)
[2024-12-15 07:30] LABS: Alanine Aminotransferase 48 U/L (7-40); Bilirubin, Total 0.2 mg/dL (0.2-1.0); Blood Urea Nitrogen 6 mg/dL (9-23); Calcium 8.1 mg/dL (8.7-10.4); Chloride 115 mmol/L (98-107); Glucose 118 mg/dL (74-106); Potassium 3.4 mmol/L (3.5-5.1)
[2024-12-15] MEDS ORDERED: POTASSIUM CHL 20MEQ/100ML 100 ML IV ONE (08:00)
[2024-12-15] MEDS: POTASSIUM EFFERVESENT TAB 25 MEQ PO ONE (18:11)
--- NOTE | 2024-12-15 19:44 | DVHPNRES ---
Progress Note Date Seen: Dec 15, 2024 Resident Creating Document: BALTA SKAGGS RESIDENT Medical Necessity Reason Pt with a Central, PICC or Fol: No Subjective Review of Systems 44-year-old female with past medical history of type 1 diabetes mellitus, diabetic gastroparesis, diabetic neuropathy, previous history of ectopic presented to the ER with complaints of 5 days of distention of abdomen, pain around the periumbilical area which radiates to lower back. The pain onset sudden and rate during 8/10 in intensity. Movement, food intake make the pain worse. She took ibuprofen with no improvement of pain. She reports the abdominal pain is associated with vomiting, bilious, not mixed with blood. She reports having urinary frequency and urgency. She denies any recent travel history or sick contacts. According to the patient, yesterday she visited to [facility] with similar complaints, CT scan revealed hepatosplenomegaly. Pain was managed and she was prescribed Protonix. This morning when the pain was intractable, she visited to [facility]. She denies any chest pain, shortness of breath, fever or any other complaints. Past medical history: Type 1 diabetes mellitus, diabetic neuropathy and gastroparesis. Past surgical history: Surgery due to ectopic with tubal ligation. Home medications: Pregabalin, insulin infusion pump. Smoking: Alcohol: Occasional Drugs: Active marijuana use Menstrual history: LMP 11/06. Irregular. canoe maker: PCP: Dr. Grijalva, military pilot: Dr. Vogel Code status: Full code The patient was seen and examined at the bedside. Overnight events were reviewed. She reports improvement in her abdominal pain. She denies any chest pain, shortness of breath, fever or any other complaints today. Objective vital signs Vital Sign Date Time Temp Pulse Resp B/P (MAP) Pulse Ox O2 Delivery O2 Flow Rate FiO2 12/15/24 17:00 98.4 91 12 133/75 (94) 99 98.4 12/15/24 08:10 Room Air* 0 21 Total Intake and Output 12/14/24 12/14/24 12/15/24 15:00 23:00 07:00 Intake Total 250 ml 2074 ml 250 ml Balance 250 ml 2074 ml 250 ml medications Current Medications Medications Dose Ordered Sig/José Miguel Route Start Time Stop Time Status Last Admin Dose Admin Ceftriaxone Sodium 50 ml @ 100 mls/hr DAILY@09 IV 12/14/24 09:00 12/15/24 09:00 100 MLS/HR Metronidazole 100 ml @ 100 mls/hr Q8HR IV 12/13/24 22:00 12/15/24 13:03 100 MLS/HR Sodium Chloride 1,000 ml @ 75 mls/hr [id number] IV 12/13/24 16:30 12/14/24 19:10 75 MLS/HR Doxycycline Hyclate 100 ml @ 50 mls/hr Q12H IV 12/13/24 19:30 12/15/24 18:25 50 MLS/HR Diagnostic Test (Pha) 1 strip ACHS 12/13/24 22:00 12/15/24 17:17 1 STRIP Dextrose 50 ml UD PRN IV 12/13/24 22:00 Ondansetron HCl 4 mg Q8HP PRN PO 12/14/24 02:45 Pantoprazole Sodium 40 mg DAILY IV 12/14/24 10:00 12/15/24 09:00 40 MG Ergocalciferol 50,000 unit Q7D PO 12/14/24 06:45 12/14/24 07:38 50,000 UNIT Morphine Sulfate 3 mg Q6HP PRN IV 12/14/24 15:30 12/14/24 16:15 3 MG Morphine Sulfate 2 mg Q4HPRN PRN IV 12/14/24 15:30 12/15/24 15:01 2 MG Examination General Appearance: Alert, Oriented X3, Cooperative, Mild distress HEENT: Atraumatic, Mucous membranes moist/pink Respiratory: Clear to auscultation, Normal air movement, No added sounds Cardiovascular: Regular rate, Normal S1, Normal S2, No murmurs Abdominal/ : Active bowel sounds, Soft, abdominal distention, tenderness around periumbilical area and CVA tenderness present Extremities: No edema, Normal pulses, No tenderness/swelling Skin: No Significant rash, except past surgical scars Neuro: Normal speech, sensorimotor deficits none Psych/Mental Status: Mental status NL, Mood NL Nurse was there as rooming house keeper during examination laboratory and microbiology Laboratory Tests 12/15/24 05:53 Test 12/15/24 05:53 Range/Units Serum Glucose 118 H 74-106 mg/dL Microbiology Date/Time Source Procedure Growth Status 12/13/24 18:09 Blood Blood Culture - Preliminary NO GROWTH AFTER 48 HOURS OF INCUBATION. Resulted 12/13/24 14:29 Voided Urine Urine Culture - Preliminary Resulted Labs and/or images reviewed: Labs reviewed by me, Image(s) reviewed by me Problem List/Assessment/Plan Problem List/Assessment/Plan Intractable abdominal pain due to Pyelonephritis/hepatitis/pelvic inflammatory disease Transaminitis IV fluid Morphine Ondansetron IV Ceftriaxone, metronidazole, doxycycline Abdominal ultrasound: The liver is diffusely echogenic which may be secondary to steatosis or another diffuse hepatic process. Correlate clinically and with liver function tests.Nondistended gallbladder. No gallstone identified. No sonographic evidence of acute cholecystitis. LFTs: ALT 69 ALP [address]:Limited evaluation of the solid abdominal viscera and vasculature due to the lack of intravenous contrast. No acute abnormalities in the abdomen or pelvis.Moderate volume colonic stool. Uncontrolled type 1 diabetes mellitus with complications (gastroparesis, diabetic neuropathy) Ruled out DKA Glucose 202, HbA1c 9.3 Mild insulin sliding scale for point of care glucose measurement only Insulin infusion pump maintained Hypokalemia Replenished Microcytic hypochromic anemia Monitor labs Iron panel Blood transfusion if hemoglobin below 7 Vitamin-D deficiency Vitamin-D 00705 Q7 Marijuana use UDS positive for cannabinoids Counseling regarding cessation for more than 14 minutes GI prophylaxis: Pantoprazole DVT prophylaxis: Not indicated Diet: Mechanical soft Goals of care discussed with the patient for more than 27 minutes: Full code status Case discussed with Dr. Cano, patient and RN Plan discussed with: Patient, Other (RN) Date of Service: Dec 15, 2024 Billing Provider: BUTCH CANO MD Common Visit Codes: [id number] INP/OBS CARE(HIGH) BALTA SKAGGS RESIDENT Dec 15, 2024 19:44 HEATHER HANCOCK RESIDENT Dec 17, 2024 14:56 BUTCH CANO MD Dec 18, 2024 10:35
[2024-12-15] MEDS: DEXTROSE (50%) 50ML SYRG IV PRN (22:18)
[2024-12-16] VITALS (9 sets, daily range): BP systolic 131–157; BP diastolic 57–93; PULSE 53–93; RESP 16–20; TEMP 98–98.6; O2SAT 90–100
[2024-12-16] MEDS: ONDANSETRON ODT 4 MG TAB PO PRN (03:37)
[2024-12-16 06:26] LABS: Hematocrit 31.1 % (36.0-46.0); Hemoglobin 10.3 g/dL (12.2-16.2); Mean Corpuscular Hemoglobin 27.6 pg (28.0-32.0); Mean Corpuscular Volume 83.4 fL (80.0-100.0); Nucleated Red Blood Cells % 0.1 %
[2024-12-16 06:43] LABS: Anion Gap 8 (5-15); Carbon Dioxide 22 mmol/L (20-31); Potassium 3.6 mmol/L (3.5-5.1); Sodium 139 mmol/L (136-145)
[2024-12-16 06:45] LABS: Calcium 8.3 mg/dL (8.7-10.4); Chloride 109 mmol/L (98-107)
[2024-12-16 06:50] LABS: BUN/Creatinine Ratio 7.6 (10.0-20.0); Blood Urea Nitrogen < 5 mg/dL (9-23); Glucose 220 mg/dL (74-106)
--- NOTE | 2024-12-16 14:40 | DVHPNRES ---
Progress Note Date Seen: Dec 16, 2024 Resident Creating Document: BALTA SKAGGS RESIDENT Medical Necessity Reason Pt with a Central, PICC or Fol: No Subjective Review of Systems 44-year-old female with past medical history of type 1 diabetes mellitus, diabetic gastroparesis, diabetic neuropathy, previous history of ectopic presented to the ER with complaints of 5 days of distention of abdomen, pain around the periumbilical area which radiates to lower back. The pain onset sudden and rate during 8/10 in intensity. Movement, food intake make the pain worse. She took ibuprofen with no improvement of pain. She reports the abdominal pain is associated with vomiting, bilious, not mixed with blood. She reports having urinary frequency and urgency. She denies any recent travel history or sick contacts. According to the patient, yesterday she visited to [facility] with similar complaints, CT scan revealed hepatosplenomegaly. Pain was managed and she was prescribed Protonix. This morning when the pain was intractable, she visited to [facility]. She denies any chest pain, shortness of breath, fever or any other complaints. Past medical history: Type 1 diabetes mellitus, diabetic neuropathy and gastroparesis. Past surgical history: Surgery due to ectopic with tubal ligation. Home medications: Pregabalin, insulin infusion pump. Smoking: Alcohol: Occasional Drugs: Active marijuana use Menstrual history: LMP 11/06. Irregular. obstetrics gynecology physician: PCP: Dr. Grijalva, manager marketing sales: Dr. Vogel Code status: Full code The patient was seen and examined at the bedside. Overnight events were reviewed. She reports having lower abdominal pain. However she could tolerate the food without vomiting, but reports feeling nauseous. She denies any chest pain, shortness of breath, fever or any other complaints today. Objective vital signs Vital Sign Date Time Temp Pulse Resp B/P (MAP) Pulse Ox O2 Delivery O2 Flow Rate FiO2 12/16/24 13:00 98.5 87 20 151/86 (107) 98 98.5 12/16/24 08:00 Room Air* 0 21 Total Intake and Output 12/15/24 12/15/24 12/16/24 15:00 23:00 07:00 Intake Total 150 ml 820 ml 1000 ml Balance 150 ml 820 ml 1000 ml medications Current Medications Medications Dose Ordered Sig/José Miguel Route Start Time Stop Time Status Last Admin Dose Admin Ceftriaxone Sodium 50 ml @ 100 mls/hr DAILY@09 IV 12/14/24 09:00 12/16/24 11:36 100 MLS/HR Metronidazole 100 ml @ 100 mls/hr Q8HR IV 12/13/24 22:00 12/16/24 13:37 100 MLS/HR Sodium Chloride 1,000 ml @ 75 mls/hr [id number] IV 12/13/24 16:30 12/14/24 19:10 75 MLS/HR Doxycycline Hyclate 100 ml @ 50 mls/hr Q12H IV 12/13/24 19:30 12/16/24 06:26 50 MLS/HR Diagnostic Test (Pha) 1 strip ACHS 12/13/24 22:00 12/16/24 11:36 1 STRIP Dextrose 50 ml UD PRN IV 12/13/24 22:00 12/15/24 22:18 50 ML Ondansetron HCl 4 mg Q8HP PRN PO 12/14/24 02:45 12/16/24 03:37 4 MG Pantoprazole Sodium 40 mg DAILY IV 12/14/24 10:00 12/16/24 11:36 40 MG Ergocalciferol 50,000 unit Q7D PO 12/14/24 06:45 12/14/24 07:38 50,000 UNIT Morphine Sulfate 3 mg Q6HP PRN IV 12/14/24 15:30 12/16/24 07:53 3 MG Morphine Sulfate 2 mg Q4HPRN PRN IV 12/14/24 15:30 12/16/24 11:57 2 MG Examination Pt is lying on bed General Appearance: Alert, Oriented X3, Cooperative, Mild distress HEENT: Atraumatic, Mucous membranes moist/pink Respiratory: Clear to auscultation, Normal air movement, No added sounds Cardiovascular: Regular rate, Normal S1, Normal S2, No murmurs Abdominal/ : Active bowel sounds, Soft, no distention, periumbilical tenderness Extremities: No edema, Normal pulses, No tenderness/swelling Skin: No Significant rash, except past surgical scars Neuro: Normal speech, sensorimotor deficits none Psych/Mental Status: Mental status NL, Mood NL Nurse was there as tool coordinator during examination laboratory and microbiology Laboratory Tests 12/16/24 05:56 Test 12/16/24 05:56 Range/Units Serum Glucose 220 H 74-106 mg/dL Microbiology Date/Time Source Procedure Growth Status 12/13/24 18:09 Blood Blood Culture - Preliminary NO GROWTH AFTER 48 HOURS OF INCUBATION. Resulted 12/13/24 14:29 Voided Urine Urine Culture - Preliminary Resulted Labs and/or images reviewed: Labs reviewed by me, Image(s) reviewed by me Problem List/Assessment/Plan Problem List/Assessment/Plan Intractable abdominal pain due to Pyelonephritis/hepatitis/pelvic inflammatory disease Transaminitis IV fluid Morphine Ondansetron Urine Bacterial Culture (Preliminary) >100,000 CFU/mL Gram Negative Rods IV Ceftriaxone, doxycycline (discontinued metronidazole) Abdominal ultrasound: The liver is diffusely echogenic which may be secondary to steatosis or another diffuse hepatic process. Correlate clinically and with liver function tests.Nondistended gallbladder. No gallstone identified. No sonographic evidence of acute cholecystitis. LFTs: ALT 69 ALP [address]:Limited evaluation of the solid abdominal viscera and vasculature due to the lack of intravenous contrast. No acute abnormalities in the abdomen or pelvis.Moderate volume colonic stool. Uncontrolled type 1 diabetes mellitus with complications (gastroparesis, diabetic neuropathy) Ruled out DKA Glucose 202, HbA1c 9.3 Mild insulin sliding scale for point of care glucose measurement only Insulin infusion pump maintained Hypokalemia Replenished Microcytic hypochromic anemia Monitor labs Iron panel Blood transfusion if hemoglobin below 7 Vitamin-D deficiency Vitamin-D 51350 Q7 Marijuana use UDS positive for cannabinoids Counseling regarding cessation for more than 14 minutes GI prophylaxis: Pantoprazole DVT prophylaxis: Not indicated Diet: Mechanical soft Goals of care discussed with the patient for more than 27 minutes: Full code status Case discussed with Dr. Cano, patient and RN Plan discussed with: Patient, Other (RN) Date of Service: Dec 16, 2024 Billing Provider: BUTCH CANO MD Common Visit Codes: [id number] INP/OBS CARE(HIGH) BALTA SKAGGS RESIDENT Dec 16, 2024 14:40 HEATHER HANCOCK RESIDENT Dec 17, 2024 14:58 BUTCH CANO MD Dec 18, 2024 10:45
[2024-12-16] MEDS ORDERED: ERGO1CAP23 PO (20:48)
[2024-12-16] MEDS ORDERED: CEPH250C PO (20:48)
[2024-12-16] MEDS ORDERED: DOXY-346 PO (20:48)
[2024-12-16] MEDS ORDERED: PANT40T PO (20:48)
[2024-12-17] VITALS (8 sets, daily range): BP systolic 140–154; BP diastolic 73–92; PULSE 78–91; RESP 16–19; TEMP 97.5–98.8; O2SAT 94–97
[2024-12-17 08:18] LABS: Hematocrit 31.5 % (36.0-46.0); Hemoglobin 10.8 g/dL (12.2-16.2); Mean Corpuscular Hemoglobin 28.5 pg (28.0-32.0); Mean Corpuscular Volume 83.4 fL (80.0-100.0); Nucleated Red Blood Cells % 0.2 %
[2024-12-17 08:23] LABS: Chloride 107 mmol/L (98-107); Sodium 142 mmol/L (136-145)
[2024-12-17 08:24] LABS: Anion Gap 7 (5-15); Calcium 8.7 mg/dL (8.7-10.4); Carbon Dioxide 28 mmol/L (20-31)
[2024-12-17 08:28] LABS: Potassium 3.4 mmol/L (3.5-5.1)
[2024-12-17 08:38] LABS: BUN/Creatinine Ratio 8.3 (10.0-20.0); Blood Urea Nitrogen < 5 mg/dL (9-23); Glucose 63 mg/dL (74-106)
[2024-12-17] MEDS: POTASSIUM CHL 20 Meq TABLET PO ONE (10:00)
[2024-12-17] MEDS: ONDANSETRON HCL 4 MG/2 ML VIAL IV PRN (12:04)
--- NOTE | 2024-12-17 14:30 | DVHPNRES ---
Progress Note Date Seen: Dec 17, 2024 Resident Creating Document: GILESBALTA RESIDENT Medical Necessity Reason Pt with a Central, PICC or Fol: No Subjective Review of Systems 44-year-old female with past medical history of type 1 diabetes mellitus, diabetic gastroparesis, diabetic neuropathy, previous history of ectopic presented to the ER with complaints of 5 days of distention of abdomen, pain around the periumbilical area which radiates to lower back. The pain onset sudden and rate during 8/10 in intensity. Movement, food intake make the pain worse. She took ibuprofen with no improvement of pain. She reports the abdominal pain is associated with vomiting, bilious, not mixed with blood. She reports having urinary frequency and urgency. She denies any recent travel history or sick contacts. According to the patient, yesterday she visited to with similar complaints, CT scan revealed hepatosplenomegaly. Pain was managed and she was prescribed Protonix. This morning when the pain was intractable, she visited to [facility]. She denies any chest pain, shortness of breath, fever or any other complaints. Past medical history: Type 1 diabetes mellitus, diabetic neuropathy and gastroparesis. Past surgical history: Surgery due to ectopic with tubal ligation. Home medications: Pregabalin, insulin infusion pump. Smoking: Alcohol: Occasional Drugs: Active marijuana use Menstrual history: LMP 11/06. Irregular. internal sales engineer: PCP: Dr. Grijalva, client development manager: Dr. Vogel Code status: Full code The patient was seen and examined at the bedside. Overnight events were reviewed. She reports having umbilical and lower abdominal pain. She is not able to tolerate food due to nausea and intractable vomiting. She denies any chest pain, shortness of breath, fever or any other complaints today. Objective vital signs Vital Sign Date Time Temp Pulse Resp B/P (MAP) Pulse Ox O2 Delivery O2 Flow Rate FiO2 12/17/24 13:00 97.5 78 16 149/79 (102) 96 97.5 12/17/24 08:00 Room Air* 0 21 Total Intake and Output 12/16/24 12/16/24 12/17/24 15:00 23:00 07:00 Intake Total 250 ml 800 ml 620 ml Output Total 1200 ml Balance 250 ml -400 ml 620 ml medications Current Medications Medications Dose Ordered Sig/José Miguel Route Start Time Stop Time Status Last Admin Dose Admin Ceftriaxone Sodium 50 ml @ 100 mls/hr DAILY@09 IV 12/14/24 09:00 12/17/24 11:36 100 MLS/HR Sodium Chloride 1,000 ml @ 75 mls/hr [id number] IV 12/13/24 16:30 12/14/24 19:10 75 MLS/HR Doxycycline Hyclate 100 ml @ 50 mls/hr Q12H IV 12/13/24 19:30 12/17/24 06:30 50 MLS/HR Diagnostic Test (Pha) 1 strip ACHS 12/13/24 22:00 12/17/24 06:38 1 STRIP Dextrose 50 ml UD PRN IV 12/13/24 22:00 12/15/24 22:18 50 ML Pantoprazole Sodium 40 mg DAILY IV 12/14/24 10:00 12/17/24 11:36 40 MG Ergocalciferol 50,000 unit Q7D PO 12/14/24 06:45 12/14/24 07:38 50,000 UNIT Morphine Sulfate 3 mg Q6HP PRN IV 12/14/24 15:30 12/17/24 11:32 3 MG Morphine Sulfate 2 mg Q4HPRN PRN IV 12/14/24 15:30 Hold 12/16/24 11:57 2 MG Acetaminophen/ Hydrocodone Bitart 1 tab Q6HPRN PRN PO 12/17/24 09:45 Ondansetron HCl 4 mg Q6HPRN PRN IV 12/17/24 12:00 12/17/24 12:04 4 MG Examination Pt is lying on bed General Appearance: Alert, Oriented X3, Cooperative, Mild distress HEENT: Atraumatic, Mucous membranes moist/pink Respiratory: Clear to auscultation, Normal air movement, No added sounds Cardiovascular: Regular rate, Normal S1, Normal S2, No murmurs Abdominal/ : Active bowel sounds, Soft, no distention, periumbilical and lower abdominal tenderness present Extremities: No edema, Normal pulses, No tenderness/swelling Skin: No Significant rash, except past surgical scars Neuro: Normal speech, sensorimotor deficits none Psych/Mental Status: Mental status NL, Mood NL Nurse was there as securities research analyst during examination laboratory and microbiology Laboratory Tests 12/17/24 07:52 Test 12/17/24 07:52 Range/Units Serum Glucose 63 L 74-106 mg/dL Microbiology Date/Time Source Procedure Growth Status 12/13/24 18:09 Blood Blood Culture - Preliminary NO GROWTH AFTER 72 HOURS OF INCUBATION. Resulted 12/13/24 14:29 Voided Urine Urine Culture - Final Escherichia coli Complete Problem List/Assessment/Plan Problem List/Assessment/Plan Intractable abdominal pain due to Pyelonephritis/hepatitis/pelvic inflammatory disease Transaminitis IV fluid Morphine Ondansetron IV Ceftriaxone,doxycycline Metronidazole discontinued due to intractable nausea and vomiting. Abdominal ultrasound: The liver is diffusely echogenic which may be secondary to steatosis or another diffuse hepatic process. Correlate clinically and with liver function tests.Nondistended gallbladder. No gallstone identified. No sonographic evidence of acute cholecystitis. LFTs: ALT 69 ALP [address]:Limited evaluation of the solid abdominal viscera and vasculature due to the lack of intravenous contrast. No acute abnormalities in the abdomen or pelvis.Moderate volume colonic stool. Uncontrolled type 1 diabetes mellitus with complications (gastroparesis, diabetic neuropathy) Ruled out DKA Glucose 202, HbA1c 9.3 Mild insulin sliding scale for point of care glucose measurement only Insulin infusion pump maintained Hypokalemia Replenished Microcytic hypochromic anemia Monitor labs Iron panel Blood transfusion if hemoglobin below 7 Vitamin-D deficiency Vitamin-D 10223 Q7 Marijuana use UDS positive for cannabinoids Counseling regarding cessation for more than 14 minutes GI prophylaxis: Pantoprazole DVT prophylaxis: Patient is ambulatory, not indicated Goals of care discussed with the patient for more than 27 minutes: Full code status Case discussed with Dr. Tapia, patient and RN Plan discussed with: Patient, Other (RN) My Orders My Orders Orders - BALTA SKAGGS Procedure Category Date Status Time Urine Bacterial ASHLI 12/16/24 Logged Culture 16:17 Hydrocodone-Acet PHA 12/17/24 In Process 5/325mg Tab ([place] 09:45 Ondansetron Hcl PHA 12/17/24 In Process (Zofran) 12:00 Date of Service: Dec 17, 2024 Billing Provider: MARGARITA TAPIA MD Common Visit Codes: [id number] INP/OBS CARE(HIGH) BALTA SKAGGS Dec 17, 2024 14:30 MARGARITA TAPIA MD Dec 21, 2024 19:47
[2024-12-17] MEDS: HYDROcodone-ACET 5/325MG TAB PO ONE (15:45)
[2024-12-17] MEDS ORDERED: ONDANSETRON HCL 4 MG/2 ML VIAL IV PRN ×2 (16:15→17:00)
[2024-12-17] MEDS: METOCLOPRAMIDE HCL 5MG/ml INJ 2ml VIAL IV PRN (16:30)
[2024-12-18] VITALS (9 sets, daily range): BP systolic 122–151; BP diastolic 65–87; PULSE 76–94; RESP 16–19; TEMP 97.6–98.2; O2SAT 95–98
[2024-12-18 06:28] LABS: Hematocrit 32.2 % (36.0-46.0); Hemoglobin 10.8 g/dL (12.2-16.2); Mean Corpuscular Hemoglobin 27.7 pg (28.0-32.0); Mean Corpuscular Volume 82.5 fL (80.0-100.0); Nucleated Red Blood Cells % 0.3 %
[2024-12-18 06:29] LABS: Anion Gap 7 (5-15); Carbon Dioxide 29 mmol/L (20-31); Chloride 105 mmol/L (98-107); Sodium 141 mmol/L (136-145)
[2024-12-18 06:30] LABS: Calcium 8.7 mg/dL (8.7-10.4); Potassium 2.8 mmol/L (3.5-5.1)
[2024-12-18 06:35] LABS: BUN/Creatinine Ratio 10.2 (10.0-20.0)
[2024-12-18 06:49] LABS: Blood Urea Nitrogen 6 mg/dL (9-23); Glucose 61 mg/dL (74-106)
[2024-12-18] MEDS: POTASSIUM CHL 20MEQ/100ML 100 ML IV ONE (09:17)
[2024-12-18] MEDS: METOCLOPRAMIDE HCL 5MG/ml INJ 2ml VIAL IV PRN (09:31)
[2024-12-18] MEDS: POTASSIUM CHL 20 Meq TABLET PO ONE ×2 (10:23→11:47)
[2024-12-18] MEDS ORDERED: POTASSIUM CHL 20 Meq TABLET PO ONE ×2 (10:25→11:35)
--- NOTE | 2024-12-18 12:21 | DVHPNRES ---
Progress Note Date Seen: Dec 18, 2024 Resident Creating Document: RADHA THOMAS RESIDENT Medical Necessity Reason Pt with a Central, PICC or Fol: No Subjective Review of Systems Patient admitted due to intractable abdominal pain, According to the patient, visited to [facility] with similar complain, CT scan revealed hepatosplenomegaly. Pain was managed and she was prescribed Protonix. She denies any chest pain, shortness of breath, fever or any other complaints. Past medical history: Type 1 diabetes mellitus, diabetic neuropathy and gastroparesis. Past surgical history: Surgery due to ectopic with tubal ligation. Home medications: Pregabalin, insulin infusion pump. Alcohol: Occasional Drugs: Active marijuana use Menstrual history: LMP 11/06. Irregular. psychology assistant: PCP: Dr. Grijalva, vehicle monitor technician: Dr. Vogel Code status: Full code Patient seen and evaluated in bedside. Metronidazole switch to doxycycline on 12/17/2024. Patient tolerate mechanical soft diet, no nausea and vomiting reported. Keep monitor patient Objective vital signs Vital Sign Date Time Temp Pulse Resp B/P (MAP) Pulse Ox O2 Delivery O2 Flow Rate FiO2 12/18/24 09:54 85 18 141/80 12/18/24 09:00 97.7 95 97.7 12/18/24 08:05 Room Air* 0 21 Total Intake and Output 12/17/24 12/17/24 12/18/24 15:00 23:00 07:00 Intake Total 480 ml 100 ml 300 ml Balance 480 ml 100 ml 300 ml medications Current Medications Medications Dose Ordered Sig/José Miguel Route Start Time Stop Time Status Last Admin Dose Admin Ceftriaxone Sodium 50 ml @ 100 mls/hr DAILY@09 IV 12/14/24 09:00 12/18/24 11:46 100 MLS/HR Sodium Chloride 1,000 ml @ 75 mls/hr [id number] IV 12/13/24 16:30 12/18/24 03:10 75 MLS/HR Doxycycline Hyclate 100 ml @ 50 mls/hr Q12H IV 12/13/24 19:30 12/18/24 06:35 50 MLS/HR Diagnostic Test (Pha) 1 strip ACHS 12/13/24 22:00 12/18/24 06:38 1 STRIP Dextrose 50 ml UD PRN IV 12/13/24 22:00 12/15/24 22:18 50 ML Pantoprazole Sodium 40 mg DAILY IV 12/14/24 10:00 12/18/24 09:54 40 MG Ergocalciferol 50,000 unit Q7D PO 12/14/24 06:45 12/14/24 07:38 50,000 UNIT Morphine Sulfate 3 mg Q6HP PRN IV 12/14/24 15:30 12/18/24 09:54 3 MG Morphine Sulfate 2 mg Q4HPRN PRN IV 12/14/24 15:30 Hold 12/16/24 11:57 2 MG Acetaminophen/ Hydrocodone Bitart 1 tab Q6HPRN PRN PO 12/17/24 09:45 Metoclopramide HCl 5 mg Q6HPRN PRN IV 12/17/24 17:00 12/18/24 09:31 5 MG Ondansetron HCl 4 mg Q4HPRN PRN IV 12/17/24 17:00 Examination General Appearance: Alert, Oriented X3, Cooperative, Mild distress HEENT: Atraumatic, Mucous membranes moist/pink Respiratory: Clear to auscultation, Normal air movement, No added sounds Cardiovascular: Regular rate, Normal S1, Normal S2, No murmurs Abdominal/ : Active bowel sounds, Soft, no distention, periumbilical and lower abdominal mild tenderness present Extremities: No edema, Normal pulses, No tenderness/swelling Skin: No Significant rash, except past surgical scars Neuro: Normal speech, sensorimotor deficits none Psych/Mental Status: Mental status NL, Mood NL Nurse was there as caramel candy maker helper during examination laboratory and microbiology Laboratory Tests 12/18/24 05:11 Test 12/18/24 05:11 Range/Units Serum Glucose 61 L 74-106 mg/dL Microbiology Date/Time Source Procedure Growth Status 12/13/24 18:09 Blood Blood Culture - Preliminary NO GROWTH AFTER 72 HOURS OF INCUBATION. Resulted 12/13/24 14:29 Voided Urine Urine Culture - Final Escherichia coli Complete Problem List/Assessment/Plan Problem List/Assessment/Plan Intractable abdominal pain due to Pyelonephritis/hepatitis/pelvic inflammatory disease Transaminitis IV fluid Morphine Ondansetron IV Ceftriaxone,doxycycline Metronidazole discontinued on 12/17/2024 Abdominal ultrasound: The liver is diffusely echogenic which may be secondary to steatosis or another diffuse hepatic process. No sonographic evidence of acute cholecystitis. Mild transaminitis CT:Limited evaluation of the solid abdominal viscera and vasculature due to the lack of intravenous contrast. No acute abnormalities in the abdomen or pelvis.Moderate volume colonic stool. Diet advanced mechanical soft diet Uncontrolled type 1 diabetes mellitus with complications (gastroparesis, diabetic neuropathy) Ruled out DKA HbA1c 9.3 Mild insulin sliding scale for point of care glucose measurement only Insulin infusion pump maintained Hypokalemia Serum potassium level 2.8 on 12/18/2024 Supplemented Monitor BMP, magnesium No signs symptoms of hypokalemia Microcytic hypochromic anemia Monitor labs Iron level 17, TIBC 283, % saturation 6.0 Follow ferritin level Blood transfusion if hemoglobin below 7 Vitamin-D deficiency Vitamin-D 00517 Q weekly Marijuana use UDS positive for cannabinoids Counseling regarding cessation for more than 12 minutes GI prophylaxis: Pantoprazole DVT prophylaxis: Patient is ambulatory, not indicated Goals of care discussed with the patient for more than 19minutes: Full code status Case discussed with Dr. Tapia, patient and RN. Plan discussed with: Patient, Other (Nurse) Date of Service: Dec 18, 2024 Billing Provider: MARGARITA TAPIA MD Common Visit Codes: [id number] INP/OBS CARE(HIGH) RADHA THOMAS RESIDENT Dec 18, 2024 12:21 MARGARITA TAPIA MD Dec 21, 2024 19:48
[2024-12-18] MEDS: MAGNESIUM SULFATE 1GM/100ML 100 ML IV ONE (17:40)
[2024-12-18] MEDS ORDERED: MAGNESIUM SULFATE 1GM/100ML 100 ML IV ONE (17:42)
[2024-12-18 18:14] LABS: Chloride 107 mmol/L (98-107); Potassium 3.7 mmol/L (3.5-5.1); Sodium 141 mmol/L (136-145)
[2024-12-18 18:15] LABS: Anion Gap 7 (5-15); Carbon Dioxide 27 mmol/L (20-31)
[2024-12-18 18:20] LABS: BUN/Creatinine Ratio 9.5 (10.0-20.0); Glucose 95 mg/dL (74-106)
[2024-12-18 18:34] LABS: Blood Urea Nitrogen 6 mg/dL (9-23); Calcium 8.4 mg/dL (8.7-10.4)
[2024-12-19] VITALS (8 sets, daily range): BP systolic 148–153; BP diastolic 83–95; PULSE 67–82; RESP 15–18; TEMP 97.5–98.8; O2SAT 95–98
[2024-12-19 10:30] LABS: Hematocrit 33.0 % (36.0-46.0); Hemoglobin 11.0 g/dL (12.2-16.2); Mean Corpuscular Hemoglobin 27.6 pg (28.0-32.0); Mean Corpuscular Volume 83.2 fL (80.0-100.0); Nucleated Red Blood Cells % 0.1 %
[2024-12-19 10:31] LABS: Chloride 103 mmol/L (98-107); Potassium 3.7 mmol/L (3.5-5.1); Sodium 140 mmol/L (136-145)
[2024-12-19 10:32] LABS: Anion Gap 10 (5-15); Carbon Dioxide 27 mmol/L (20-31)
[2024-12-19 10:33] LABS: Calcium 8.8 mg/dL (8.7-10.4)
[2024-12-19 10:38] LABS: Magnesium 1.7 mg/dL (1.6-2.6)
[2024-12-19 11:10] LABS: BUN/Creatinine Ratio 8.3 (10.0-20.0); Blood Urea Nitrogen < 5 mg/dL (9-23); Glucose 141 mg/dL (74-106)
[2024-12-19 11:53] LABS: Hepatitis B Surface Antigen Negative (Negative)
[2024-12-19 11:54] LABS: Hepatitis C Antibody Reactive (Negative)
[2024-12-19] MEDS: HYDROcodone-ACET 5/325MG TAB PO PRN (14:10)
--- NOTE | 2024-12-19 14:37 | DVHCONRES ---
Date Seen: Dec 19, 2024 Resident Creating Document: LUIS EDUARDO BATEMAN RESIDENT Referring Physician Dr. Montero, Resident PGY 1 Reason for Consultation ''Hepatitis-C antibody positive'' History of Present Illness Emmanuel Haddad, a 44-year-old female with a history of type 1 diabetes mellitus on insulin pump, previous history of DKA, diabetic gastroparesis, diabetic neuropathy on pregabalin, and prior ectopic with tubal ligation presents with five days of abdominal distention and sharp periumbilical pain radiating to the lower back, rated 8/10 in intensity and worsened by movement and food intake. The pain is associated with bilious vomi ting, urinary urgency and frequency, but no fever, chest pain, or respiratory symptoms. She previously visited [facility] where hepatosplenomegaly was noted on CT and was prescribed Protonix. Due to worsening pain, she presented to [facility] today. She uses an insulin pump and pregabalin, reports occasional alcohol use, active marijuana use, and has an irregular menstrual history (LMP 8/3). Her care team includes Dr. Grijalva (PCP) and Dr. Vogel (truck assembler). Past Medical History Type 1 diabetes mellitus, diabetic neuropathy and gastroparesis. Past Surgical History Surgery due to ectopic with tubal ligation. Family History: FH: colon cancer G8 MOTHER Allergies: Coded Allergies: NO KNOWN ALLERGIES (Unverified , 03/11/22) Home Meds Active Scripts Doxycycline (Monohydrate) (Doxycycline) 100 Mg Tab, 100 MG PO BID for 7 Days, #14 TAB Prov:HEATHER HANCOCK 12/16/24 Cephalexin (KEFLEX CAPSULE) 250 Mg Cp, 1 CAP PO QID for 7 Days, #28 CAP Prov:HEATHER HANCOCK 12/16/24 Pantoprazole Sodium Sesquihydr (Pantoprazole Sodium) 40 Mg Tab, 40 MG PO DAILY for 30 Days, #30 TAB Prov:HEATHER HANCOCK 12/16/24 Ergocalciferol (VITAMIN D 74957 UNIT) 50,000 [place], [address] UNIT PO Q7D for 60 Days, #10 CAP Prov:HEATHER HANCOCK 12/16/24 Discontinued Scripts Azithromycin (Zithromax Z-Reggie) 250 Mg Tab, 250 MG PO DAILY, #6 TAB Prov:MARGARITA FRAUSTO MD 02/03/23 Home Meds regabalin, insulin infusion pump. Review of Systems CONSTITUTIONAL: Fever, night sweats, weight loss, Lymphadenopathy, ecchymoses, fatigue: Negative DERMATOLOGIC: Rash, New/growing/changing skin lesions: Negative HEENT: Vision change, eye pain, Rhinorrhea, sinus pain, epistaxis, dysphagia, odynophagia, globus sensation, Change in hearing, tinnitus, vertigo, otalgia, Dental problems, oral ulcers or lesions: : Negative ENDOCRINE: Weight change, heat or cold intolerance, tremor, insomnia, neck pain or swelling, Polyuria, polydipsia, polyphagia, Abnormal hair growth, change in nails: Negative CARDIOVASCULAR: Chest pain, palpitations, syncope, Edema, cyanosis, claudication, Orthopnea, paroxysmal nocturnal dyspnea: Negative PULMONARY: Shortness of breath, dyspnea with exertion, Cough, hemoptysis, wheezing, chest pain : Negative GI: Nausea, vomiting, diarrhea, melena, hematochezia, Change in appetite, abdominal pain, change in bowel habits or stools: Negative : Dysuria, frequency, urgency, Urinary incontinence, hematuria, foamy urine, nocturia, Change in libido, erectile dysfunction, Change in menses, dysmenorrhea, dyspaerunia, pelvic pain MUSCULOSKELETAL: Joint swelling or pain, muscle pain, back pain: : Negative NEUROLOGIC: Headache, scotoma, Change in smell or taste, change in facial muscles, Muscle weakness, paresthesias, anesthesia, Ataxia, change in speech: Negative PSYCHIATRIC: Depression, anxiety, hallucinations, aubree, suicidal/homicidal thoughts, Binging, purging: Negative Vital Signs Vital Signs Date Time Temp Pulse Resp B/P (MAP) Pulse Ox O2 Delivery O2 Flow Rate FiO2 12/19/24 13:00 97.6 75 16 153/86 (108) 95 97.6 12/19/24 08:00 Room Air* 0 21 Physical Exam GENERAL APPEARANCE: Well developed, well nourished, alert and cooperative, and appears to be in no acute distress. HEAD: normocephalic. EYES: PERRL, EOMI. Fundi normal, vision is grossly intact. EARS: External auditory canals and tympanic membranes clear, hearing grossly intact. NOSE: No nasal discharge. THROAT: Oral cavity and pharynx normal. No inflammation, swelling, exudate, or lesions. Teeth and gingiva in good general condition. NECK: Neck supple, non-tender without lymphadenopathy, masses or thyromegaly. CARDIAC: Normal S1 and S2. No S3, S4 or murmurs. Rhythm is regular. There is no peripheral edema, cyanosis or pallor. Extremities are warm and well perfused. Capillary refill is less than 2 seconds. No carotid bruits. LUNGS: Clear to auscultation and percussion without rales, rhonchi, wheezing or diminished breath sounds. ABDOMEN: Positive bowel sounds. Soft, nondistended, nontender. No guarding or rebound. No masses. Right CVA tenderness. MUSCULOSKELETAL: Adequately aligned spine. ROM intact spine and extremities. No joint erythema or tenderness. Normal muscular development. Normal gait. BACK: Examination of the spine reveals normal gait and posture, no spinal deformity, symmetry of spinal muscles, without tenderness, decreased range of motion or muscular spasm. EXTREMITIES: No significant deformity or joint abnormality. No edema. Peripheral pulses intact. No varicosities. LOWER EXTREMITY: Examination of both feet reveals all toes to be normal in size and symmetry, normal range of motion, normal sensation with distal capillary filling of less than 2 seconds without tenderness, swelling, discoloration, nodules, weakness or deformity; examination of both ankles, knees, legs, and hips reveals normal range of motion, normal sensation without tenderness, swelling, discoloration, crepitus, weakness or deformity. NEUROLOGICAL: CN II-XII intact. Strength and sensation symmetric and intact throughout. Reflexes 2+ throughout. Cerebellar testing normal. SKIN: Skin normal color, texture and turgor with no lesions or eruptions. PSYCHIATRIC: The mental examination revealed the patient was oriented to person, place, and time. The patient was able to demonstrate good judgement and reason, without hallucinations, abnormal affect or abnormal behaviors during the examination. Patient is not suicidal. Labs/Diagnostic Data Labs Test 12/19/24 12:26 12/19/24 09:56 12/15/24 05:53 12/14/24 07:52 Range/Units POC Glucose 113 H 70-106 mg/dl White Blood Count 8.3 4.4-10.8 10^3/uL Red Blood Count 3.97 L 4.0-5.20 10^6/uL Hemoglobin 11.0 L 12.2-16.2 g/dL Hematocrit 33.0 L 36.0-46.0 % Mean Corpuscular Volume 83.2 80.0-100.0 fL Mean Corpuscular Hemoglobin 27.6 L 28.0-32.0 pg Mean Corpuscular Hemoglobin Concent 33.2 32.0-36.0 g/dL Red Cell Distribution Width 14.5 H 11.8-14.3 % Platelet Count 234 140-450 10^3/uL Mean Platelet Volume 9.6 6.9-10.8 fL Neutrophils (%) (Auto) 56.3 37.0-80.0 % Lymphocytes (%) (Auto) 29.3 10.0-50.0 % Monocytes (%) (Auto) 11.0 0.0-12.0 % Eosinophils (%) (Auto) 2.1 0.0-7.0 % Basophils (%) (Auto) 1.3 0.0-2.0 % Neutrophils # (Auto) 4.7 1.6-8.6 10 ^3/uL Lymphocytes # (Auto) 2.4 0.4-5.4 10 ^3/uL Monocytes # (Auto) 0.9 0-1.3 10 ^3/uL Eosinophils # (Auto) 0.2 0-0.8 10 ^3/uL Basophils # (Auto) 0.1 0-0.2 10 ^3/uL Nucleated Red Blood Cells 0.1 % Sodium Level 140 136-145 mmol/L Potassium Level 3.7 3.5-5.1 mmol/L Chloride Level 103 98-107 mmol/L Carbon Dioxide Level 27 20-31 mmol/L Anion Gap 10 5-15 Blood Urea Nitrogen < 5 L 9-23 mg/dL Creatinine 0.60 0.550-1.02 mg/dL Glomerular Filtration Rate Calc 114 >90 mL/min BUN/Creatinine Ratio 8.3 L 10.0-20.0 Serum Glucose 141 H 74-106 mg/dL Calcium Level 8.8 8.7-10.4 mg/dL Phosphorus Level 2.4 2.4-5.1 mg/dL Magnesium Level 1.7 1.6-2.6 mg/dL Ferritin 39.2 10-291 ng/mL Total Bilirubin 0.2 0.2-1.0 mg/dL Aspartate Amino Transferase (AST) 36 13-40 U/L Alanine Aminotransferase (ALT) 48 H 7-40 U/L Alkaline Phosphatase 87 46-116 U/L Total Protein 5.9 5.7-8.2 g/dL Albumin 3.2 3.2-4.8 g/dL Iron Level 17 L 50-170 ug/dL Total Iron Binding Capacity 283 250-425 ug/dL Percent Iron Saturation 6.0 L 15-50 % Test 12/13/24 16:38 12/13/24 16:30 12/13/24 14:29 Range/Units Prothrombin Time 10.5 9.3-11.8 sec Prothrombin Time INR 0.99 0.9-1.15 Activated Partial Thromboplast Time 32.3 24.5-34.5 SEC Hemoglobin A1c 9.8 H <5.7 % A1C Triglycerides Level 85 < 150 mg/dL Cholesterol Level 137 < 200 mg/dL LDL Cholesterol 49 < 100 mg/dL HDL Cholesterol 69 H 40-59 mg/dL Lipase 16 12-53 U/L Vitamin B12 Level 1292 H 211-911 pg/mL Vitamin D 25-Hydroxy 6.0 L 30.0-100 ng/mL Thyroid Stimulating Hormone (TSH) 0.39 L 0.55-4.78 uIU/mL Plasma/Serum Blood Alcohol 3.4 <10 mg/dL Hepatitis A IgM Antibody Negative Hepatitis B Surface Antigen Negative Negative Hepatitis B Core IgM Antibody Negative Negative Hepatitis C Antibody Reactive *A Negative Lactic Acid Level 0.8 0.4-2.0 mmol/L Ammonia < 10 L 11-32 umol/L Thyroxine (T4) 5.8 4.5-12.0 ug/dL Free Triiodothyronine (T3) pg/mL 1.37 L 2.3-4.2 pg/mL Beta HCG, Quantitative 1.6 1.5-4.2 mIU/mL Treponema pallidum Antibody Non-reactive Negative HIV (1&2) Antibody Negative Negative Urine Color Light-orange Yellow Urine Clarity Ex.turbid Clear Urine pH 6.0 5.0-9.0 Urine Specific [place] 1.023 1.001-1.035 Urine Protein 1+ H Negative Urine Ketones Negative Negative Urine Blood 3+ H Negative /uL Urine Nitrite Negative Negative Urine Bilirubin Negative Negative Urine Urobilinogen Normal Negative mg/dL Urine Leukocyte Esterase 3+ Negative /uL Urine RBC 30 0 - 4 /hpf Urine Microscopic WBC 50 H 0-5 /HPF Urine Squamous Epithelial Cells Many <5 /hpf Urine Bacteria None seen None Seen /hpf Urine Mucus Few None Seen Urine Yeast (Budding) Occasional None Seen /hpf Urine Glucose 1+ H Normal mg/dL Urine Opiates Screen Neg NEGATIVE Urine Fentanyl Screen Neg NEGATIVE Urine Barbiturates Screen Neg NEGATIVE Urine Phencyclidine Screen Neg NEGATIVE Urine Amphetamines Screen Neg NEGATIVE Urine Benzodiazepines Screen Neg NEGATIVE Urine Cocaine Screen Neg NEGATIVE Urine Cannabinoids Screen Pos NEGATIVE Microbiology Date/Time Source Procedure Growth Status 12/13/24 18:09 Blood Blood Culture - Final NO GROWTH AFTER 5 DAYS OF INCUBATION. Complete 12/13/24 14:29 Voided Urine Urine Culture - Final Escherichia coli Complete Assessment #Positive for hepatitis-C antibody: The patient was not aware of the hepatitis-C exposure, but previously was vaccinated. Positive Hepatitis C antibody may denote anything in between previous exposure, active immunity or acquired community. #Acute complicated UTI positive urinalysis with culture positive for pansensitive E coli, ruled out bacteremia #Uncontrolled diabetes mellitus on insulin pump with HbA1c of 9.8 #Ruled out #Hepatic steatosis without functional or radiological indication of cirrhotic pathology #Follow up chlamydia and gonorrhea treponema pallidum to ruled out STD. #Right ovarian cyst, looks uncomplicated on twisted #Marijuana abuse disorder #Menometrorrhagia, LMP /. #Essential hypertension #Chronic anemia, normocytic Plan/Recommendation #Patient is currently on ceftriaxone and doxycycline can continue till ruled out STDs, patient can be discharged home otherwise on oral Keflex 500 mg b.i.d. for total 10 days. #In-hospital universal precautions to continue, bedside patient education for transmissibility of possible hepatitis-C infection With strict abstinence from blood product and unprotected sexual activities. #Negative for cirrhosis, variceal bleeding, jaundice, encephalopathy or ascites, we will check for HCV genotype, HCV RNA PCR qualitative with noninvasive measures of fibrosis, can be done outpatient du. #Outpatient close follow up with Infectious Disease. We will consider initiation of antivirals only if the aforementioned tests are positive. #Blood pressure control, with target HbA1c of 8-9 with further management by truck assembler with diabetic education and counseling. #Avoid alcohol, other hepatotoxic for now. Discussed with Dr. Jefferson. Thank you for the opportunity to consult on your patient. Infectious disease we will sign off inpatient, but we will closely follow up outpatient du. Plan discussed with: Patient, Other (Primary team, RN) LUIS EDUARDO BATEMAN RESIDENT Dec 19, 2024 14:37
--- NOTE | 2024-12-19 21:15 | DVHPNRES ---
Progress Note Date Seen: Dec 19, 2024 Resident Creating Document: BALTA SKAGGS RESIDENT Medical Necessity Reason Pt with a Central, PICC or Fol: No Subjective Review of Systems Patient admitted due to intractable abdominal pain, According to the patient, visited to [facility] with similar complain, CT scan revealed hepatosplenomegaly. Pain was managed and she was prescribed Protonix. She denies any chest pain, shortness of breath, fever or any other complaints. Past medical history: Type 1 diabetes mellitus, diabetic neuropathy and gastroparesis. Past surgical history: Surgery due to ectopic with tubal ligation. Home medications: Pregabalin, insulin infusion pump. Alcohol: Occasional Drugs: Active marijuana use Menstrual history: LMP 11/06. Irregular. human resources compliance manager: PCP: Dr. Grijalva, kennel worker: Dr. Vogel Code status: Full code The patient was seen and examined at the bedside. Overnight events were reviewed. This morning the patient reports having intractable right upper abdominal pain. However she could tolerate the food without nausea or vomiting. She denies any chest pain, shortness of breath, fever, abdominal pain or any other complaints. Objective vital signs Vital Sign Date Time Temp Pulse Resp B/P (MAP) Pulse Ox O2 Delivery O2 Flow Rate FiO2 12/19/24 17:07 70 16 165/84 12/19/24 17:00 98.8 98 98.8 12/19/24 08:00 Room Air* 0 21 Total Intake and Output 12/18/24 12/18/24 12/19/24 15:00 23:00 07:00 Intake Total 480 ml 1300 ml 600 ml Balance 480 ml 1300 ml 600 ml medications Current Medications Medications Dose Ordered Sig/José Miguel Route Start Time Stop Time Status Last Admin Dose Admin Ceftriaxone Sodium 50 ml @ 100 mls/hr DAILY@09 IV 12/14/24 09:00 12/19/24 09:12 100 MLS/HR Sodium Chloride 1,000 ml @ 75 mls/hr [id number] IV 12/13/24 16:30 12/19/24 01:45 75 MLS/HR Doxycycline Hyclate 100 ml @ 50 mls/hr Q12H IV 12/13/24 19:30 12/19/24 20:41 50 MLS/HR Diagnostic Test (Pha) 1 strip ACHS 12/13/24 22:00 12/19/24 21:10 1 STRIP Dextrose 50 ml UD PRN IV 12/13/24 22:00 12/15/24 22:18 50 ML Pantoprazole Sodium 40 mg DAILY IV 12/14/24 10:00 12/19/24 09:11 40 MG Ergocalciferol 50,000 unit Q7D PO 12/14/24 06:45 12/14/24 07:38 50,000 UNIT Morphine Sulfate 3 mg Q6HP PRN IV 12/14/24 15:30 12/19/24 16:37 3 MG Morphine Sulfate 2 mg Q4HPRN PRN IV 12/14/24 15:30 Hold 12/16/24 11:57 2 MG Acetaminophen/ Hydrocodone Bitart 1 tab Q6HPRN PRN PO 12/17/24 09:45 12/19/24 14:10 1 TAB Metoclopramide HCl 5 mg Q6HPRN PRN IV 12/17/24 17:00 12/18/24 09:31 5 MG Ondansetron HCl 4 mg Q4HPRN PRN IV 12/17/24 17:00 Examination Patient is lying in bed General Appearance: Alert, Oriented X3, Cooperative, Mild distress HEENT: Atraumatic, Mucous membranes moist/pink Respiratory: Clear to auscultation, Normal air movement, No added sounds Cardiovascular: Regular rate, Normal S1, Normal S2, No murmurs Abdominal/ : Active bowel sounds, Soft, no distention, right upper abdominal tenderness present. Extremities: No edema, Normal pulses, No tenderness/swelling Skin: No Significant rash, except past surgical scars Neuro: Normal speech, sensorimotor deficits none Psych/Mental Status: Mental status NL, Mood NL Nurse was there as manager water wastewater during examination laboratory and microbiology Laboratory Tests 12/19/24 09:56 Test 12/19/24 09:56 Range/Units Serum Glucose 141 H 74-106 mg/dL Microbiology Date/Time Source Procedure Growth Status 12/13/24 18:09 Blood Blood Culture - Final NO GROWTH AFTER 5 DAYS OF INCUBATION. Complete 12/13/24 14:29 Voided Urine Urine Culture - Final Escherichia coli Complete Problem List/Assessment/Plan Problem List/Assessment/Plan Intractable abdominal pain due to Pyelonephritis/hepatitis/pelvic inflammatory disease Transaminitis IV fluid Morphine Ondansetron IV Ceftriaxone,doxycycline Metronidazole discontinued due to intractable nausea and vomiting. Negative for cirrhosis, variceal bleeding, jaundice, encephalopathy or ascites Abdominal ultrasound: The liver is diffusely echogenic which may be secondary to steatosis or another diffuse hepatic process. Correlate clinically and with liver function tests.Nondistended gallbladder. No gallstone identified. No sonographic evidence of acute cholecystitis. LFTs: ALT 69 ALP [address]:Limited evaluation of the solid abdominal viscera and vasculature due to the lack of intravenous contrast. No acute abnormalities in the abdomen or pelvis.Moderate volume colonic stool. Hepatitis C antibody positive. Infectious disease consulted. Recommendations from infectious disease specialist: Continue ceftriaxone doxycycline until ruled out STDs. Discharge home on Keflex 500 mg b.i.d. for total 10 days Bedside patio patient education for transmissibility of possible hepatitis-C infection with strict abstinence from blood product and unprotected sexual activities. Outpatient close follow-up with Infectious Disease. Check HCV genotype, HCV RNA PCR qualitative with noninvasive measures of fibrosis, can be done outpatient. Avoid alcohol and other hepatotoxic agents. Uncontrolled type 1 diabetes mellitus with complications (gastroparesis, diabetic neuropathy) Ruled out DKA Hyperglycemia, HbA1c 9.3 Mild insulin sliding scale for point of care glucose measurement only Insulin infusion pump maintained Hypokalemia Replenished Microcytic hypochromic anemia Monitor labs Iron panel Blood transfusion if hemoglobin below 7 Vitamin-D deficiency Vitamin-D 75928 Q7 Marijuana use UDS positive for cannabinoids Counseling regarding cessation for more than 14 minutes GI prophylaxis: Pantoprazole DVT prophylaxis: Patient is ambulatory, not indicated Discharge plan: Discharge home on Keflex 250 mg q6hs. for total 10 days Goals of care discussed with the patient for more than 27 minutes: Full code status Case discussed with Dr. Cano, patient and RN Plan discussed with: Patient, Other (RN) My Orders My Orders Orders - BALTA SKAGGS RESIDENT Procedure Category Date Status Time * Infectious Deyanira- Dr. YUNG 12/19/24 Transmitted K Ronny 13:55 Dietary Evaluation Review Recommendations by RD: Dietary education by RD Comments: 1) Initiate Glucerna qd 2) Continue 60g CCHO diet 3) Encourage optimal PO intake 4) Refer to outpatient RD/CD[facility] for diabetes education 5) Continue to monitor I&O, labs, and skin integrity Expected Outcomes/Goals: 1) appetite and labs to improve 2) f/u in 3-5 days Date of Service: Dec 19, 2024 Billing Provider: BUTCH CANO MD Common Visit Codes: [id number] INP/OBS CARE(HIGH) BALTA SKAGGS RESIDENT Dec 19, 2024 21:15 HEATHER HANCOCK RESIDENT Dec 20, 2024 20:55 BUTCH CANO MD Dec 27, 2024 16:14
[2024-12-20 05:00] VITALS: BP 153/81; PULSE 81; RESP 17; TEMP 98.3; O2SAT 95
[2024-12-20 07:57] VITALS: BP 157/82; PULSE 78; RESP 18; TEMP 98; O2SAT 96
--- NOTE | 2024-12-20 10:39 | DVHDSRES ---
Discharge Summary Date of Admission Resident Creating Document: BALTA SKAGGS Dec 13, 2024 at 15:17 Date of Discharge: Dec 16, 2024 Admitting Diagnosis Acute pyelonephritis Labs/Diagnostic Data: Laboratory Results Test 12/20/24 06:34 12/19/24 09:56 12/15/24 05:53 12/14/24 07:52 POC Glucose 145 mg/dl (70-106) White Blood Count 8.3 10^3/uL (4.4-10.8) Red Blood Count 3.97 10^6/uL (4.0-5.20) Hemoglobin 11.0 g/dL (12.2-16.2) Hematocrit 33.0 % (36.0-46.0) Mean Corpuscular Volume 83.2 fL (80.0-100.0) Mean Corpuscular Hemoglobin 27.6 pg (28.0-32.0) Mean Corpuscular Hemoglobin Concent 33.2 g/dL (32.0-36.0) Red Cell Distribution Width 14.5 % (11.8-14.3) Platelet Count 234 10^3/uL (140-450) Mean Platelet Volume 9.6 fL (6.9-10.8) Neutrophils (%) (Auto) 56.3 % (37.0-80.0) Lymphocytes (%) (Auto) 29.3 % (10.0-50.0) Monocytes (%) (Auto) 11.0 % (0.0-12.0) Eosinophils (%) (Auto) 2.1 % (0.0-7.0) Basophils (%) (Auto) 1.3 % (0.0-2.0) Neutrophils # (Auto) 4.7 10 ^3/uL (1.6-8.6) Lymphocytes # (Auto) 2.4 10 ^3/uL (0.4-5.4) Monocytes # (Auto) 0.9 10 ^3/uL (0-1.3) Eosinophils # (Auto) 0.2 10 ^3/uL (0-0.8) Basophils # (Auto) 0.1 10 ^3/uL (0-0.2) Nucleated Red Blood Cells 0.1 % Sodium Level 140 mmol/L (136-145) Potassium Level 3.7 mmol/L (3.5-5.1) Chloride Level 103 mmol/L (98-107) Carbon Dioxide Level 27 mmol/L (20-31) Anion Gap 10 (5-15) Blood Urea Nitrogen < 5 mg/dL (9-23) Creatinine 0.60 mg/dL (0.550-1.02) Glomerular Filtration Rate Calc 114 mL/min (>90) BUN/Creatinine Ratio 8.3 (10.0-20.0) Serum Glucose 141 mg/dL (74-106) Calcium Level 8.8 mg/dL (8.7-10.4) Phosphorus Level 2.4 mg/dL (2.4-5.1) Magnesium Level 1.7 mg/dL (1.6-2.6) Ferritin 39.2 ng/mL (10-291) Total Bilirubin 0.2 mg/dL (0.2-1.0) Aspartate Amino Transferase (AST) 36 U/L (13-40) Alanine Aminotransferase (ALT) 48 U/L (7-40) Alkaline Phosphatase 87 U/L (46-116) Total Protein 5.9 g/dL (5.7-8.2) Albumin 3.2 g/dL (3.2-4.8) Iron Level 17 ug/dL (50-170) Total Iron Binding Capacity 283 ug/dL (250-425) Percent Iron Saturation 6.0 % (15-50) Test 12/13/24 16:38 12/13/24 16:30 12/13/24 14:29 Prothrombin Time 10.5 sec (9.3-11.8) Prothrombin Time INR 0.99 (0.9-1.15) Activated Partial Thromboplast Time 32.3 SEC (24.5-34.5) Hemoglobin A1c 9.8 % A1C (<5.7) Triglycerides Level 85 mg/dL (< 150) Cholesterol Level 137 mg/dL (< 200) LDL Cholesterol 49 mg/dL (< 100) HDL Cholesterol 69 mg/dL (40-59) Lipase 16 U/L (12-53) Vitamin B12 Level 1292 pg/mL (211-911) Vitamin D 25-Hydroxy 6.0 ng/mL (30.0-100) Thyroid Stimulating Hormone (TSH) 0.39 uIU/mL (0.55-4.78) Plasma/Serum Blood Alcohol 3.4 mg/dL (<10) Hepatitis A IgM Antibody Negative Hepatitis B Surface Antigen Negative (Negative) Hepatitis B Core IgM Antibody Negative (Negative) Hepatitis C Antibody Reactive (Negative) Lactic Acid Level 0.8 mmol/L (0.4-2.0) Ammonia < 10 umol/L (11-32) Thyroxine (T4) 5.8 ug/dL (4.5-12.0) Free Triiodothyronine (T3) pg/mL 1.37 pg/mL (2.3-4.2) Beta HCG, Quantitative 1.6 mIU/mL (1.5-4.2) Treponema pallidum Antibody Non-reactive (Negative) HIV (1&2) Antibody Negative (Negative) Urine Color Light-orange (Yellow) Urine Clarity Ex.turbid (Clear) Urine pH 6.0 (5.0-9.0) Urine Specific [place] 1.023 (1.001-1.035) Urine Protein 1+ (Negative) Urine Ketones Negative (Negative) Urine Blood 3+ /uL (Negative) Urine Nitrite Negative (Negative) Urine Bilirubin Negative (Negative) Urine Urobilinogen Normal mg/dL (Negative) Urine Leukocyte Esterase 3+ /uL (Negative) Urine RBC 30 /hpf (0 - 4) Urine Microscopic WBC 50 /HPF (0-5) Urine Squamous Epithelial Cells Many /hpf (<5) Urine Bacteria None seen /hpf (None Seen) Urine Mucus Few (None Seen) Urine Yeast (Budding) Occasional /hpf (None Urine Glucose 1+ mg/dL (Normal) Urine Opiates Screen Neg (NEGATIVE) Urine Fentanyl Screen Neg (NEGATIVE) Urine Barbiturates Screen Neg (NEGATIVE) Urine Phencyclidine Screen Neg (NEGATIVE) Urine Amphetamines Screen Neg (NEGATIVE) Urine Benzodiazepines Screen Neg (NEGATIVE) Urine Cocaine Screen Neg (NEGATIVE) Urine Cannabinoids Screen Pos (NEGATIVE) Other Laboratory Tests 12/19/24 09:56 Brief Hx & Hospital Course: Emmanuel Haddad a 44-year-old female with past medical history of type 1 diabetes mellitus, diabetic gastroparesis, diabetic neuropathy, previous history of ectopic presented to the ER with complaints of 5 days of distention of abdomen, pain around the periumbilical area which radiates to lower back. The pain onset sudden and rate during 8/10 in intensity. Movement, food intake make the pain worse. She took ibuprofen with no improvement of pain. She reports the abdominal pain is associated with vomiting, bilious, not mixed with blood. She reports having urinary frequency and urgency. She denies any recent travel history or sick contacts. According to the patient, day before admission, she visited to [facility] with similar complaints, CT scan revealed hepatosplenomegaly. Pain was managed and she was prescribed Protonix. This morning when the pain was intractable, she visited to [facility]. She denies any chest pain, shortness of breath, fever or any other complaints. Past medical history: Type 1 diabetes mellitus, diabetic neuropathy and gastroparesis. Past surgical history: Surgery due to ectopic with tubal ligation. Home medications: Pregabalin, insulin infusion pump. Alcohol: Occasional Drugs: Active marijuana use Menstrual history: LMP 11/06. Irregular. president practicing urologist: PCP: Dr. Grijalva, hotel office manager: Dr. Vogel Code status: Full code The patient had right upper abdominal tenderness, but no signs of ascites or encephalopathy. Lab workup revealed elevated liver enzyme., hyperglycemia with a HbA1c of 9.3, hypokalemia corrected throughout the admission, microcytic hypochromic anemia and vitamin-D deficiency. Imaging CT scan showing no acute abdominal or pelvic abnormalities and then abdominal ultrasound revealing a diffusely echogenic liver suggestive of steatosis. Hepatitis C antibody was positive and urine drug screen was positive for cannabinoid. The patient was treated with the IV fluid morphine for pain, ondansetron for nausea, and IV ceftriaxone and doxycycline for possible PID. Metronidazole was discontinued intractable nausea. Insulin infusion pump was maintained, and a mild sliding scale insulin regimen was used for glucose control. Vitamin-D supplementation was initiated, and potassium levels were replenished accordingly. Infectious disease was consulted due to hepatitis-C virus positive. The recommended outpatient follow up for hepatitis-C including genotype testing, HCV RNA PCR, and noninvasive fibrosis assessment. Counseling was provided regarding transfusion risks and the need to avoid alcohol and hepatotoxic substances. The patient was discharged home in stable condition with a prescription of Keflex 500 mg twice daily for 7 days, continued vitamin-D supplementation, Winnie and instruction to follow up with her primary care physician, hotel office manager and infectious disease specialist. Examination Patient is lying in bed General Appearance: Alert, Oriented X3, Cooperative, Mild distress HEENT: Atraumatic, Mucous membranes moist/pink Respiratory: Clear to auscultation, Normal air movement, No added sounds Cardiovascular: Regular rate, Normal S1, Normal S2, No murmurs Abdominal/ : Active bowel sounds, Soft, no distention, right upper abdominal tenderness present. Extremities: No edema, Normal pulses, No tenderness/swelling Skin: No Significant rash, except past surgical scars Neuro: Normal speech, sensorimotor deficits none Psych/Mental Status: Mental status NL, Mood NL Nurse was there as skin fitter during examination laboratory and microbiology Operations or Procedures Pelvic ultrasound on 12/14/2024: 1. No acute sonographic abnormality. 2. Heterogeneous appearance of the uterus without increased size of the junctional zone or underlying cysts. 3. No discrete measurable mass. Normal appearance of the endometrial stripe. 4. Benign-appearing cysts of the right ovary. Small amount of pelvic free fluid. Abdomen ultrasound 12/13: The liver is diffusely echogenic which may be secondary to steatosis or another diffuse hepatic process. Correlate clinically and with liver function tests. Nondistended gallbladder. No gallstone identified. No sonographic evidence of acute cholecystitis. CXR on 12/13/2024 1. No acute cardiopulmonary abnormality. Abdomen pelvis CT on 12/13/24 Limited evaluation of the solid abdominal viscera and vasculature due to the lack of intravenous contrast. No acute abnormalities in the abdomen or pelvis. Condition at Discharge: Stable Final Diagnosis/Problems List Acute pyelonephritis Intractable abdominal pain due to Pyelonephritis,hepatitis,pelvic inflammatory disease Transaminitis Positive Hepatitis C antibodies - evaluate active infection as outpatient Uncontrolled type 1 diabetes mellitus with complications (gastroparesis, diabetic neuropathy) Ruled out DKA Hypokalemia Microcytic hypochromic anemia Vitamin-D deficiency Marijuana use Discharge Disposition: Home Discharge Instruct/Medications Diet: Consistent carbohydrate, Cardiac 2g Na,low cholest Activity: No Restrictions, As Tolerated Follow Up/Referral: follow up in 1 week with DC clinic and PCP Medications: as per EMR Scheduled Cephalexin (Keflex Capsule), 1 CAP PO QID Doxycycline (Monohydrate) (Doxycycline), 100 MG PO BID Ergocalciferol (Vitamin D 33989 Unit), 50,000 UNIT PO Q7D Oxycodone W/ Acetaminophen (Percocet 5/325MG), 1 TAB PO TID Pantoprazole Sodium Sesquihydr (Pantoprazole Sodium), 40 MG PO DAILY Discharge Statement: "Patient was advised to return to the ER or call 911 if any headaches, dizziness, shortness of breath, chest pain, abdominal pain, bleeding, fevers, or worsening of medical condition. Patient was counseled about treatment plan, medications, possible side effects, patientverbalized understanding. All questions were answered to the best of my ability. This discharge took greater then 30 minutes in planning, reviewing documentation, counseling the patient, and discussing with other team members." ASSESSMENT ASSESSMENT Assessment Acute pyelonephritis Date of Service: Dec 16, 2024 Billing Provider: BUTCH CHIN MD Common Visit Codes: 82017-HZK/OBS DISCH DAY >30min GILESBALTA RESIDENT Dec 20, 2024 10:39 HEATHER HANCOCK RESIDENT Dec 27, 2024 10:04 BUTCH CHIN MD Dec 27, 2024 16:33
[2024-12-20 13:27] VITALS: BP 153/78; PULSE 78; RESP 18; TEMP 97.9; O2SAT 95
[2024-12-20] MEDS ORDERED: PERCOT PO (15:00)
== END 2024-12-20 14:00 | disposition home or self-care (01) | DRG 531 ==
LOC: ER 11:07 → OVERFLOW 15:17 → CENTRAL 22:40
PROVIDERS: ADMIT Student in an Organized Health Care Education/Training Program; ATTEND Student in an Organized Health Care Education/Training Program
DX: N73.9 Female pelvic inflammatory disease, unspecified (principal); B19.20 Unspecified viral hepatitis C without hepatic coma; E10.43 Type 1 diabetes mellitus with diabetic autonomic (poly)neuropathy; D50.9 Iron deficiency anemia, unspecified; E10.40 Type 1 diabetes mellitus with diabetic neuropathy, unspecified; E55.9 Vitamin D deficiency, unspecified; E10.65 Type 1 diabetes mellitus with hyperglycemia; K31.84 Gastroparesis; N10 Acute pyelonephritis; E87.6 Hypokalemia; N83.201 Unspecified ovarian cyst, right side; N92.1 Excessive and frequent menstruation with irregular cycle; R74.01 Elevation of levels of liver transaminase levels; F12.10 Cannabis abuse, uncomplicated; I10 Essential (primary) hypertension; Z98.51 Tubal ligation status; Z80.0 Family history of malignant neoplasm of digestive organs
CPT/HCPCS: 36415; 36600; 71045; 74176; 76700; 76830; 76856; 80048; 80053; 80061; 80074; 80307; 80320; 81001; 82140; 82306; 82607; 82728; 82805; 82962; 83036; 83540; 83550; 83605; 83690; 83735; 84100; 84436; 84443; 84481; 84702; 85025; 85610; 85730; 86703; 86780; 87040; 87086; 87088; 87186; 96361; 96374; 96375; G0378; J1815; J2003; J2405; J2470; J3480; J3490; Q0162